=== PATIENT | male | born 1965 | race Caucasian/White ===

== ENCOUNTER 2020-03-16 14:21 | Emergency (ER) | payer SELFPAY ==
[2020-03-16 14:23] VITALS: BP 160/89; PULSE 97; RESP 18; TEMP 36.7; O2SAT 97; BMI 28.9
--- NOTE | 2020-03-16 14:27 | EKG12_ITS ---
Test Reason : PALPITATIONS Blood Pressure : / mmHG Vent. Rate : 097 BPM Atrial Rate : 097 BPM P-R Int : 172 ms QRS Dur : 108 ms QT Int : 358 ms P-R-T Axes : 040 -29 032 degrees QTc Int : 454 ms Normal sinus rhythm Leftward axis Poor R wave progression Confirmed by MINI ALLEN, PREETHI ([id number]), desk editor FLORENCE CHAMBERS ([id number]) on 03/20/2020 10:43:36 AM Referred By: MARIELOS Confirmed By:PREETHI MORSE MD
[2020-03-16 14:30] VITALS: O2SAT 98
[2020-03-16 14:40] LABS: Absolute Lymphocyte Count 2.45 X10^3/uL (0.83-4.51); Absolute Neutrophil Count 8.4 X10^3/uL (2.0-7.7); Basophil# 0.12 X10^3/uL; Eosinophil# 0.17 X10^3/uL; Eosinophils% 1.4 % (0-5); Hematocrit 40.6 % (40-54); Hemoglobin 14.1 g/dL (13.0-16.5); Lymphocyte # 2.45 X10^3/ul (4.0); Lymphocyte % 20.3 % (19-41); Mean Corp Hgb Conc 34.7 g/dL (32-36); Mean Corpuscular Hgb 30.3 pg (27.0-32.0); Mean Corpuscular Volume 87.3 fL (80-94); Mean Platelet Vol. 9.2 fl (6.2-12.0); Monocyte# 0.85 X10^3/uL; NRBC Flagged by Analyzer 0 % (0-5); Neutrophil # 8.43 X10^3/uL (2.7-7.7); Neutrophil % 69.7 % (47-70); Platelet Count 368 K/mm3 (150-450); RBC Distribution Width CV 11.8 % (11.6-14.6); RBC Distribution Width SD 37.4 fl (35.1-43.9); Red Blood Count 4.65 M/mm3 (4.6-6.2); White Blood Count 12.1 K/mm3 (4.4-11.0)
--- NOTE | 2020-03-16 14:40 | RAD_ITS ---
STUDY: X-RAY CHEST REASON FOR EXAM: Male, 54 years old. HIGH HEART RATE AND CHEST PAIN, HX OF ANXIETY TECHNIQUE: Single AP portable view of the chest. COMPARISON: None. FINDINGS: EKG electrodes are seen. The lungs are clear and expanded. There is no demonstrated pleural abnormality. Normal size heart. Normal mediastinum and chris. Normal visualized pulmonary arteries. Normal visualized aortic arch and descending thoracic aorta. There are degenerative changes of the visualized thoracic spine. Normal visualized ribs, clavicles, and shoulders. There is no demonstrated abnormality of the visualized soft tissue structures of the upper abdomen. RAD/Chest 1 View (Portable) IMPRESSION: Normal x-ray examination of the chest. Electronically Signed: Deni Rosa, at 14:58 EDT , Service support ,
--- NOTE | 2020-03-16 14:47 | ED.VIS.GEN ---
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 He had another episode today. He did not lose consciousness today. He felt lightheaded after he stood up from a seated position and had to sit down. His called EMS. He had a similar episode last week that he states he actually lost consciousness and his drove him to the hospital but due to the weight in the waiting room he did not sign in as a patient in the emergency department. No chest pain or shortness of breath. No leg pain or swelling. No fevers. No cough. No room spinning sensation. No tinnitus. No numbness tingling or weakness. No hemoptysis. No recent travel or surgery history of DVT or PE. Prior similar symptoms: No Recent Illness/Hospitalization: No Past Medical History - Allergies and Home Meds Allergies/Adverse Reactions: Allergies No Known Allergies Allergy (Verified 03/16/20 14:32) Prior records reviewed: Yes Past Medical History: - - Hypertension, anxiety and depression Surgical History: no surgical history Lives: With Family Smoking Status: Never smoker Alcohol: None Drugs: None Review of Systems All systems negative except as indicated General: Denies: Chills, Fever, Sweats Eyes: Denies: Visual changes - bilaterally, Blurred Vision - bilaterally, Diplopia ENT: Denies: Rhinorrhea, Sore throat Cardiovascular: Reports: Palpitations, Heart racing. Denies: Chest pain Respiratory: Denies: Dyspnea, Cough, Dyspnea on exertion Gastrointestinal: Denies: Abdominal pain, Nausea, Vomiting, Diarrhea, Melena, Hematochezia Genitourinary: Denies: Dysuria, Hematuria, Frequency Musculoskeletal: Denies: Back pain, Extremity Pain Skin: Denies: Rash, Wounds Neurological: Denies: Headache, Weakness, Parasthesia, Numbness Physical Exam Vital Signs/Narrative: Vital Signs Temp Pulse Resp BP Pulse Ox 03/16/20 14:30 98 03/16/20 14:23 98.1 F 97 18 160/89 H 97 Inital Vital Signs reviewed: Yes General: Well nourished, Well developed, No Acute Distress Head: Normocephalic, Atraumatic Eyes: Perrl, EOMI ENT: Moist mucous membranes, No rhinorrhea Neck: Supple, Nontender Cardiovascular: Regular rate, Regular rhythm, No murmurs Respiratory: No distress, CTA bilaterally, Chest nontender Abdomen: Soft, Nontender, Nondistended, Normal bowel sounds Back: Nontender, Normal Inspection Extremities: Nontender, No edema Skin: Normal color, No rash Neurological: Alert, Oriented x3, Cranial nerves II-XII grossly intact, Normal Strength, Normal Sensation, Normal Gait, - - normal finger to nose Psychological: Normal affect, Normal Mood Diagnostic/Tx/Re-eval - Rhythm Strip Rhythm Strip: Sinus Rhythm Rate: 98 Ectopy: None - EKG Initial EKG Interpretation: Sinus Rhythm, No Acute Injury Pattern Prior: No Prior - Medical Decision Making On arrival patient had normal vital signs. His EKG was normal sinus rhythm. Rate of 97 bpm. Normal intervals. No ectopy. Laboratory work-up was unremarkable. Chest x-ray unremarkable as well. I spoke with Dr. Chaney, patient will be arranged to have a Holter monitor set up next week as an outpatient. I discussed this with patient and his and they are agreeable with plan of care. Return precautions discussed. He will be discharged ED Disposition - Plan for ED Patient: Disposition: Home or Assisted Living Diagnosis: Palpitations Instructions: ED Palpitations Referrals: Valeria Gonzalez DO [Primary Care Provider] - 3-5 Days
[2020-03-16 15:03] LABS: Anion Gap 5 (5-15); BUN 17 mg/dL (7-18); BUN/Creat Ratio 14.3 RATIO (10-20); Calcium,Total 8.6 mg/dL (8.5-10.1); Chloride 99 mmol/L (98-107); Creatinine, Serum 1.19 mg/dL (0.70-1.30); EST Glomerular Filtration Rate 67 mL/min (>60); Est Glom Filt Rate - Afr Amer 82 mL/min (>60); Estimated Creatinine Clearance 72.42 ml/min; Glucose 106 mg/dL (74-106); Potassium 3.3 mmol/L (3.5-5.1); Sodium Level 131 mmol/L (136-145)
[2020-03-16 15:21] VITALS: BP 136/82; PULSE 95; RESP 18; O2SAT 100
[2020-03-16 16:24] VITALS: BP 131/81; PULSE 72; RESP 18; O2SAT 99
== END 2020-03-16 16:24 | disposition home or self-care (01) ==
PROVIDERS: Emergency Medicine; Emergency Provider Physician Assistant Medical; PCP Internal Medicine
DX: R00.2 Palpitations (principal); R42 Dizziness and giddiness; I10 Essential (primary) hypertension; F32.9 Major depressive disorder, single episode, unspecified; F41.9 Anxiety disorder, unspecified; Z79.899 Other long term (current) drug therapy
CPT/HCPCS: 71045; 80048; 84484; 85025; 93005; 99285; A4216

== ENCOUNTER → 2022-12-30 | Outpatient (CLI) | payer OTHER, SELFPAY | END | disposition home or self-care (01) | LOC: PAT 10:19 | PROVIDERS: PCP Internal Medicine; Visit Provider Internal Medicine Gastroenterology | DX: Z01.818 Encounter for other preprocedural examination (principal) ==

== ENCOUNTER → 2024-01-28 | Outpatient (CLI) | payer OTHER, SELFPAY | END | disposition home or self-care (01) | LOC: PSN 13:53 | PROVIDERS: PCP Internal Medicine; Referring Provider Internal Medicine; Visit Provider Internal Medicine | DX: I49.9 Cardiac arrhythmia, unspecified (principal) | CPT/HCPCS: 93225; 93226 ==

== ENCOUNTER 2024-02-24 07:06 | Emergency (ER) | payer OTHER, SELFPAY ==
[2024-02-24 07:07] VITALS: BP 180/97; PULSE 87; RESP 18; TEMP 36.5; O2SAT 96; BMI 28.3
--- NOTE | 2024-02-24 07:25 | CT_ITS ---
STUDY: CT ABDOMEN AND PELVIS WITH CONTRAST REASON FOR EXAM: Male, 58 years old. Left lower quadrant pain x1 week RADIATION DOSAGE (If Supplied By Facility): CTDIvol = ( 15.87 ) mGy, DLP = ( 1259.10 ) mGycm TECHNIQUE: Transaxial images were obtained from the dome of the diaphragm to the symphysis pubis without oral contrast. IV 100mL Isovue-300 was administered. Sagittal and coronal images were reconstructed. Individualized dose optimization techniques were used for this CT. COMPARISON: None. FINDINGS: The visualized lung bases are unremarkable. The visualized portions of the heart are within normal limits. The liver is unremarkable aside from a simple 1 cm cyst in the left lobe. There are 2 separate gallstones near the neck of the gallbladder and some subtle gallbladder wall enhancement but there is no wall thickening, pericholecystic fluid or biliary dilatation noted. Normal spleen. Normal pancreas. Normal bilateral adrenal glands. No obstructive uropathy, or suspicious solid renal lesion, there is a simple 5 mm right renal cyst. Normal visualized stomach. Normal small intestine. There are a few scattered colonic diverticula. There is abnormal thickening of the proximal and mid sigmoid colon with pericolonic inflammatory stranding and caliber change. Findings are consistent with acute diverticulitis. However, an underlying lesion needs to be excluded and further evaluation with colonoscopy is recommended once the acute inflammatory changes have resolved. No perforation or abscess. There are multiple subcentimeter associated lymph nodes present. The appendix is visualized and appears normal. Appendix is seen on coronal recon images 59 through 63. Normal abdominal aorta. Normal inferior vena cava. Normal retroperitoneum. There is diffuse circumferential thickening of the bladder likely due to patient''s mildly enlarged prostate which contains multiple calcifications suggesting chronic prostatitis. Small fat containing inguinal hernias noted. Normal osseous structures. CT/Abdomen/Pelvis W IV Cont ONLY IMPRESSION: Abnormal thickening of the proximal and mid sigmoid colon with pericolonic inflammatory stranding and caliber change. Findings are suggestive of acute diverticulitis without perforation or abscess but an underlying lesion needs to be excluded once the acute inflammation has resolved. Simple hepatic and renal cysts, no specific follow-up needed. Cholelithiasis without CT evidence of acute cholecystitis N.B. : The above Results were Read Back by Demetrio Birmingham MD to Lexa Vidal DO, and understanding confirmed on 02/24/2024 08:30:28 (ET). Electronically Signed: Demetrio Birmingham MD at 8:39 EDT ,
[2024-02-24 07:28] LABS: Absolute Neutrophil Count 11.1 X10^3/uL (2.0-7.7); Basophil# 0.17 X10^3/uL; Basophil% 1.1 % (0-1); Eosinophil# 0.18 X10^3/uL; Eosinophils% 1.1 % (0-5); Hematocrit 45.4 % (40-54); Hemoglobin 15.2 g/dL (13.0-16.5); Lymphocyte % 18.2 % (19-41); Mean Corp Hgb Conc 33.5 g/dL (32-36); Mean Corpuscular Hgb 29.8 pg (27.0-32.0); Mean Platelet Vol. 9.3 fl (6.2-12.0); Monocyte# 1.56 X10^3/uL; Monocyte% 9.8 % (0-10); NRBC Flagged by Analyzer 0 % (0-5); Neutrophil # 11.05 X10^3/uL (2.7-7.7); Neutrophil % 69.2 % (47-70); POSITIVE DIFFERENTIAL YES; Platelet Count 282 K/mm3 (150-450); RBC Distribution Width CV 12.8 % (11.6-14.6); RBC Distribution Width SD 41.8 fl (35.1-43.9)
--- NOTE | 2024-02-24 07:29 | EX.ED.DYSGE1 ---
HPI History of Present Illness Chief Complaint: Abd Pain Informant: patient Narrative Narrative: 58-year-old male presenting to the emergency room with lower abdominal pain. Patient states that last Thursday into he developed diarrhea. He noticed some upper abdominal discomfort. He states he then developed lower abdominal discomfort. His stools have since returned to normal but the pain has remained mostly suprapubic left lower quadrant. He denies any painful urination but does note frequent urination. Is been otherwise eating normally. No fevers. He notes no blood or black stools. The patient denies any history of colitis or diverticulitis. No history of ureterolithiasis. Patient denies any prior abdominal surgeries. There is no radiation of the pain. [facility] Medical History Wears glasses Wears contact lenses Alcohol use Marijuana use Injury of back Non-smoker History of stress test Hyperlipidemia PTSD (post-traumatic stress disorder) Essential (primary) hypertension GERD (gastroesophageal reflux disease) Erosive esophagitis Muscle weakness (generalized) Lump in throat Home Medications ?Medication ?Instructions ?Recorded ?Last Taken ?Type lisinopril 20 mg tablet 20 mg PO BID 03/16/20 02/24/24 History escitalopram oxalate 10 mg tablet 10 mg PO DAILY 03/10/22 02/24/24 History (Lexapro) amoxicillin 875 mg-potassium 875 mg PO Q12H #20 TABLETS 02/24/24 Unknown Rx clavulanate 125 mg tablet ondansetron 4 mg disintegrating 4 mg PO Q6H PRN PRN Nausea #10 tabs 02/24/24 Unknown Rx tablet oxycodone-acetaminophen 5 mg-325 1 tab PO Q6H PRN PRN Pain 3 days 02/24/24 Unknown Rx mg tablet #12 TABLETS Allergy/AdvReac Type Severity Reaction Status Date / Time No Known Allergies Allergy Verified 02/24/24 07:07 Family History Mother Hypertension Father Hyperlipidemia Surgical History History of esophagogastroduodenoscopy (EGD) History of tonsillectomy Social History Smoking Status: Never smoker alcohol intake: current ROS ROS ED Constitutional Constitutional ED: Denies chills, fever(s) or weight loss Eyes Eyes: Denies change in vision or diplopia ENT ENT ED: Denies ear pain, rhinorrhea or sore throat Cardiovascular Cardiovascular: Denies chest pain, orthopnea, palpitations or racing heartbeat Respiratory/Chest Respiratory/Chest: Denies cough, dyspnea or orthopnea Gastrointestinal Gastrointestinal: Reports abdominal pain and diarrhea; Denies nausea or vomiting Genitourinary Genitourinary ED: Denies dysuria, hematuria or urinary frequency Musculoskeletal Musculoskeletal: Denies arthralgias, back pain or myalgias Integumentary Denies abscess or rash Neurologic Neurologic: Denies headache(s) or weakness Psychiatric Psychiatric: Denies anxiety, depression, suicidal ideation or suicidal thoughts Endocrine Endocrinology: Denies polydipsia, polyphagia or polyuria Allergic/Immunologic Allergic/Immunologic ED: Denies mouth swelling, tongue swelling or urticaria EXAM Physical Exam Const Vital Signs: 02/24/24 07:07 Temperature 97.7 F L Temperature Source Temporal Pulse Rate 87 Respiratory Rate 18 Blood Pressure 180/97 H Blood Pressure Mean 124 Pulse Ox 96 Oxygen Delivery Method Room Air Positive well nourished and well developed General Appearance ED: well developed HEENT Reports normocephalic, head/scalp atraumatic and moist mucous membranes Eyes PERRL and EOMs intact bilaterally Neck no lymphadenopathy, supple and no JVD Resp normal respiratory effort and clear to auscultation bilaterally Cardio regular rate, regular rhythm and no murmurs GI Inspection: Negative for abdominal distention Auscultation: normoactive bowel sounds Palpation: soft and tender LLQ and suprapubic Back/Spine no CVA tenderness and normal ROM Extremity normal to inspection General Extremety ED: Negative for edema General Extremity: Negative for edema Neuro oriented x3 and CN's II-XII intact bilaterally Sensorium / Orientation: alert Motor Exam: strength 5/5 throughout Psych mental status grossly normal Mood & Affect: Negative for depressed or tearful Skin no rashes or lesions noted and no wounds MDM MDM MDM Narrative Medical decision making narrative: Differential diagnosis includes but not limited to diverticulitis colitis volvulus bowel obstruction constipation UTI ureterolithiasis White count elevated 16. There is slight elevation of the patient's creatinine. Urinalysis is negative. Liver and lipase normal. CT then pelvis with IV contrast was obtained demonstrates acute sigmoid diverticulitis. There is noted caliber change. I discussed with the patient. He is afebrile. He clinically appears well. He will be treated with Augmentin on outpatient basis as well as pain and nausea medication. I do recommend a follow-up colonoscopy which was discussed with the patient and he notes understanding. He understands return instructions and potential complications of diverticulitis. No further questions from the patient. History & Record Review Discussion w/independent historian: Patient Lab Data Attestation: I reviewed the patient's lab results. Labs: Laboratory Results - last 24 hr 02/24/24 02/24/24 02/24/24 07:18 07:18 07:18 WBC 16.0 H RBC 5.10 Hgb 15.2 Hct 45.4 MCV 89.0 MCH 29.8 MCHC 33.5 RDW Std Deviation 41.8 RDW Coeff of Maddison 12.8 Plt Count 282 MPV 9.3 Immature Gran % (Auto) 0.600 Neut % (Auto) 69.2 Lymph % (Auto) 18.2 L Gage % (Auto) 9.8 Eos % (Auto) 1.1 Baso % (Auto) 1.1 H Absolute Neuts (auto) 11.1 H Absolute Lymphs (auto) 2.90 Nucleated RBC % 0 Differential Comment Diff Path Review May foll Sodium 136 137 Potassium 3.8 3.9 Chloride 103 Carbon Dioxide Anion Gap BUN Creatinine Estim Creat Clear Calc Est GFR (MDRD) Af Amer Est GFR (MDRD) Non-Af BUN/Creatinine Ratio Glucose Calcium Total Bilirubin Direct Bilirubin AST ALT Alkaline Phosphatase Total Protein Albumin Globulin Lipase Urine Color Urine Clarity Urine pH Ur Specific Blodgett Urine Protein Urine Glucose (UA) Urine Ketones Urine Occult Blood Urine Nitrite Urine Bilirubin Urine Urobilinogen Ur Leukocyte Esterase Urine RBC Urine WBC Ur Squamous Epith Cells Urine Bacteria Urine Mucus 02/24/24 02/24/24 02/24/24 07:18 07:18 07:18 WBC RBC Hgb Hct MCV MCH MCHC RDW Std Deviation RDW Coeff of Maddison Plt Count MPV Immature Gran % (Auto) Neut % (Auto) Lymph % (Auto) Gage % (Auto) Eos % (Auto) Baso % (Auto) Absolute Neuts (auto) Absolute Lymphs (auto) Nucleated RBC % Differential Comment Diff Path Review Sodium Potassium Chloride 104 Carbon Dioxide 27.0 27.0 Anion Gap 6 6 BUN 16 Creatinine Estim Creat Clear Calc Est GFR (MDRD) Af Amer Est GFR (MDRD) Non-Af BUN/Creatinine Ratio Glucose Calcium Total Bilirubin Direct Bilirubin AST ALT Alkaline Phosphatase Total Protein Albumin Globulin Lipase Urine Color Urine Clarity Urine pH Ur Specific Blodgett Urine Protein Urine Glucose (UA) Urine Ketones Urine Occult Blood Urine Nitrite Urine Bilirubin Urine Urobilinogen Ur Leukocyte Esterase Urine RBC Urine WBC Ur Squamous Epith Cells Urine Bacteria Urine Mucus 02/24/24 02/24/24 02/24/24 07:18 07:18 07:18 WBC RBC Hgb Hct MCV MCH MCHC RDW Std Deviation RDW Coeff of Maddison Plt Count MPV Immature Gran % (Auto) Neut % (Auto) Lymph % (Auto) Gage % (Auto) Eos % (Auto) Baso % (Auto) Absolute Neuts (auto) Absolute Lymphs (auto) Nucleated RBC % Differential Comment Diff Path Review Sodium Potassium Chloride Carbon Dioxide Anion Gap BUN 15 Creatinine 1.52 H 1.46 H Estim Creat Clear Calc 60.75 63.25 Est GFR (MDRD) Af Amer 61 Est GFR (MDRD) Non-Af BUN/Creatinine Ratio Glucose Calcium Total Bilirubin Direct Bilirubin AST ALT Alkaline Phosphatase Total Protein Albumin Globulin Lipase Urine Color Urine Clarity Urine pH Ur Specific Blodgett Urine Protein Urine Glucose (UA) Urine Ketones Urine Occult Blood Urine Nitrite Urine Bilirubin Urine Urobilinogen Ur Leukocyte Esterase Urine RBC Urine WBC Ur Squamous Epith Cells Urine Bacteria Urine Mucus 02/24/24 02/24/24 02/24/24 07:18 07:18 07:18 WBC RBC Hgb Hct MCV MCH MCHC RDW Std Deviation RDW Coeff of Maddison Plt Count MPV Immature Gran % (Auto) Neut % (Auto) Lymph % (Auto) Gage % (Auto) Eos % (Auto) Baso % (Auto) Absolute Neuts (auto) Absolute Lymphs (auto) Nucleated RBC % Differential Comment Diff Path Review Sodium Potassium Chloride Carbon Dioxide Anion Gap BUN Creatinine Estim Creat Clear Calc Est GFR (MDRD) Af Amer 64 Est GFR (MDRD) Non-Af 50 L 53 L BUN/Creatinine Ratio 10.5 10.3 Glucose 110 H Calcium Total Bilirubin Direct Bilirubin AST ALT Alkaline Phosphatase Total Protein Albumin Globulin Lipase Urine Color Urine Clarity Urine pH Ur Specific Blodgett Urine Protein Urine Glucose (UA) Urine Ketones Urine Occult Blood Urine Nitrite Urine Bilirubin Urine Urobilinogen Ur Leukocyte Esterase Urine RBC Urine WBC Ur Squamous Epith Cells Urine Bacteria Urine Mucus 02/24/24 02/24/24 02/24/24 07:18 07:18 07:25 WBC RBC Hgb Hct MCV MCH MCHC RDW Std Deviation RDW Coeff of Maddison Plt Count MPV Immature Gran % (Auto) Neut % (Auto) Lymph % (Auto) Gage % (Auto) Eos % (Auto) Baso % (Auto) Absolute Neuts (auto) Absolute Lymphs (auto) Nucleated RBC % Differential Comment Diff Path Review Sodium Potassium Chloride Carbon Dioxide Anion Gap BUN Creatinine Estim Creat Clear Calc Est GFR (MDRD) Af Amer Est GFR (MDRD) Non-Af BUN/Creatinine Ratio Glucose 110 H Calcium 9.2 9.3 Total Bilirubin 0.90 Direct Bilirubin 0.19 AST 23 ALT 42 Alkaline Phosphatase 84 Total Protein 8.1 Albumin 3.8 Globulin 4.3 H Lipase 35 Urine Color Yellow Urine Clarity Clear Urine pH 7.0 Ur Specific Blodgett 1.010 Urine Protein 15 H Urine Glucose (UA) Normal Urine Ketones Negative Urine Occult Blood 25 H Urine Nitrite Negative Urine Bilirubin Negative Urine Urobilinogen Normal Ur Leukocyte Esterase 100 H Urine RBC 0-5 SEEN Urine WBC 0-5 SEEN Ur Squamous Epith Cells 0 SEEN Urine Bacteria 0 SEEN Urine Mucus 0 SEEN Radiography Diagnostic Testing: Clinical Impression(s) from Imaging Studies Abdomen/Pelvis CT 02/24/24 07:25 IMPRESSION: Abnormal thickening of the proximal and mid sigmoid colon with pericolonic inflammatory stranding and caliber change. Findings are suggestive of acute diverticulitis without perforation or abscess but an underlying lesion needs to be excluded once the acute inflammation has resolved. Simple hepatic and renal cysts, no specific follow-up needed. Cholelithiasis without CT evidence of acute cholecystitis N.B. : The above Results were Read Back by Demetrio Birmingham MD to Lexa Vidal DO, and understanding confirmed on 02/24/2024 08:30:28 (ET). Electronically Signed: Demetrio Birmingham MD at 8:39 EDT Reading Location ID and State: [address] [place] [address] , Service support , Discharge Plan Triage Chief Complaint: Abd Pain ED Provider: Lexa Vidal Dx/Rx/DC Orders Clinical Impression: Abdominal pain, acute, Acute diverticulitis Instructions: ED Diverticulitis Prescriptions: New oxycodone-acetaminophen 5-325 mg tablet 1 tab PO Q6H PRN PRN (Reason: Pain) 3 Days Qty: 12 0RF ondansetron 4 mg tablet,disintegrating 4 mg PO Q6H PRN PRN (Reason: Nausea) Qty: 10 0RF amoxicillin-pot clavulanate 875-125 mg tablet 875 mg PO Q12H Qty: 20 0RF No Action escitalopram oxalate [Lexapro] 10 mg tablet 10 mg PO DAILY lisinopril 20 MG tablet 20 mg PO BID Primary Care Provider: Valeria Gonzalez Referrals: Valeria Gonzalez DO [Primary Care Provider] - 1 Week Activity Restrictions/Additional Instructions: As discussed you need to have a follow-up colonoscopy when you have recovered from this illness. This is to ensure there is no underlying malignancy or other potential complications. If you develop fever worsening abdominal pain not improving or initial improvement followed by return of symptoms you need to return to emergency department for repeat examination. Please take the entire course of the antibiotics. Print Language: Puerto Rican Disposition Disposition: Home, Self Care
[2024-02-24] MEDS: 0.9% Normal Saline (1000mL) 1,000 ML 999 ML IV (07:33)
[2024-02-24 07:35] LABS: Differential Indicated SCAN CRITERIA MET
[2024-02-24 07:41] LABS: Bacteria 0 SEEN /hpf (None Seen); Mucous, Urine 0 SEEN /hpf (<or=2+); Squamous Epithelial Cells - UA 0 SEEN /hpf (0-5)
[2024-02-24 07:42] LABS: Color, Urine Yellow (Yellow); Glucose, Dipstick Normal (Normal); Ketone-Dipstick Negative (Negative); Leukocyte Esterase-Dipstick 100 /ul (Negative); Nitrite-Dipstick Negative (Negative); Occult Blood-Urine 25 /ul (Negative); Protein-Dipstick 15 mg/dl (Negative); Urine Bilirubin Dipstick Negative (Negative); Urine Clarity Clear (Clear); Urine Urobilinogen Normal (Normal)
[2024-02-24 07:45] LABS: Anion Gap 6 (5-15); BUN 16 mg/dL (7-18); BUN/Creat Ratio 10.5 RATIO (10-20); Calcium,Total 9.2 mg/dL (8.5-10.1); Chloride 103 mmol/L (98-107); Creatinine, Serum 1.52 mg/dL (0.70-1.30); EST Glomerular Filtration Rate 50 mL/min (>60); Est Glom Filt Rate - Afr Amer 61 mL/min (>60); Estimated Creatinine Clearance 60.75 ml/min; Glucose 110 mg/dL (74-106); Potassium 3.8 mmol/L (3.5-5.1); Sodium Level 136 mmol/L (136-145)
[2024-02-24 07:47] LABS: Red Blood Cells-Urine 0-5 SEEN /hpf (0-5); White Blood Cells 0-5 SEEN /hpf (0-5)
[2024-02-24 07:58] LABS: AST(SGOT) 23 U/L (15-37); Alanine Aminotransfer ALT/SGPT 42 U/L (16-61); Albumin, Serum 3.8 g/dL (3.2-5.0); Alkaline Phosphatase 84 U/L (45-117); Anion Gap 6 (5-15); BUN 15 mg/dL (7-18); BUN/Creat Ratio 10.3 RATIO (10-20); Bilirubin, Direct 0.19 mg/dL (0.00-0.30); Calcium,Total 9.3 mg/dL (8.5-10.1); Chloride 104 mmol/L (98-107); Creatinine, Serum 1.46 mg/dL (0.70-1.30); EST Glomerular Filtration Rate 53 mL/min (>60); Est Glom Filt Rate - Afr Amer 64 mL/min (>60); Estimated Creatinine Clearance 63.25 ml/min; Globulin 4.3 g/dL (2.2-4.2); Glucose 110 mg/dL (74-106); Lipase 35 U/L (13-75); Potassium 3.9 mmol/L (3.5-5.1); Protein, Total 8.1 g/dL (6.4-8.2); Sodium Level 137 mmol/L (136-145)
[2024-02-24 08:47] VITALS: BP 177/91; PULSE 112; RESP 17; TEMP 36.5; O2SAT 98
[2024-02-25 13:14] LABS: Pathologist Review Reviewed
== END 2024-02-24 08:52 | disposition home or self-care (01) ==
PROVIDERS: Emergency Provider Emergency Medicine; PCP Internal Medicine; Visit Provider Emergency Medicine
DX: K57.92 Diverticulitis of intestine, part unspecified, without perforation or abscess without bleeding (principal); R35.0 Frequency of micturition; K21.00 Gastro-esophageal reflux disease with esophagitis, without bleeding; I10 Essential (primary) hypertension; E78.5 Hyperlipidemia, unspecified; Z79.899 Other long term (current) drug therapy
CPT/HCPCS: 74177; 80048; 80076; 81001; 83690; 85025; 96360; 99283; J7030; J7040; Q9967; A4216

== ENCOUNTER → 2024-04-20 | Outpatient (CLI) | payer OTHER, SELFPAY ==
--- NOTE | 2024-04-20 08:00 | RDU_ITS ---
Reason For Study: Asymptomatic hypertensive urgency Right Renal Artery Left Renal Artery Right renal artery ostium 119.9/32 Left renal artery ostium 115.6/30.1 RSV/EDV. PSV/EDV. Right renal artery proximal Left renal artery proximal PSV/EDV 132.1/42.7 PSV/EDV. 138.9/43 . Right renal artery mid 146.2/50.5 Left renal artery mid 120.7/35.2 PSV/EDV. PSV/EDV . Right renal artery distal Left renal artery distal 95.9 161.5/42.1 PSV/EDV. PSV/EDV. Right RAR 1.70. Left RAR 1.47. Right Renal Parenchyma Left Renal Parenchyma Upper Pole Medula 45.7/17.1 Left upper pole medulla 38.6/7.9 PSV/EDV. PSV/EDV . Right upper pole medulla EDR 0.4 . Left upper pole medulla EDR 0.2 . Right upper pole medulla R.I. Left upper pole medulla R.I. 0.80 . 0.62 . UP Cortex 27.1/8.7 PSV/EDV. Upper Brian Cortx 22.5/7.7 PSV/EDV. Left upper pole cortex EDR 0.3 . Right upper pole cortex EDR 0.3 . Left upper pole cortex R.I. 0.68 . Right upper pole cortex R.I. 0.66 . Left lower Pole medulla 34.5/11.8 Right lower Pole medulla 36/12.7 PSV/EDV . PSV/EDV . Left lower pole medulla EDR 0.3 . Right lower pole medulla EDR 0.4 . Left lower pole medulla R.I. 0.66 . Right lower pole medulla R.I. Lower Pole Cortx 20.4/6.9 PSV/EDV. 0.65 . Left lower pole cortex EDR 0.3 . Lower Pole Cortex 18.8/5.9 PSV/EDV. Left lower pole cortex R.I. 0.66 . Right lower pole cortex EDR 0.3 . Left Renal Hilar Right lower pole cortex R.I. 0.69 . LT Hilar avg 73.4/22.9 PSV/EDV . Right Renal Hilar Left hilar acceleration time 40 Right Hilar avg 73.1/13.8 PSV/EDV. m/sec. Right hilar acceleration time 70 Left Renal Dimensions m/sec. Left kidney size 11.87 cm . Right Renal Dimensions Left cortical dimension 1.39 cm . Right kidney size 10.76 cm . Right cortical dimension 1.49 cm . Aorta Proximal abdominal aorta 1.73 x 1.75 cm . Proximal abdominal aorta peak systolic velocity is 94.8 cm/sec . Distal abdominal aorta 1.35 x 1.36 cm . Distal abdominal aorta peak systolic velocity is 115..5 cm/sec . VL/Renal Artery Duplex Ultrasound Interpretation Summary Right renal artery patent with normal velocities and no evidence of stenosis. Left renal artery patent with normal velocities and no evidence of stenosis. Right renal vein patent. Left renal vein patent. Right kidney normal in size. Left kidney normal in size. Ordering Physician: Valeria Gonzalez Referring Physician: Valeria Gonzalez Performed By: Akila Rodriguez RVT
--- NOTE | 2024-04-20 08:00 | CDU_ITS ---
Reason For Study: Hypertensive urgency Rt. Velocities/BP Lt. Velocities/BP Prox CCA 92.9/18.2 cm/sec. Prox CCA 107.2/21.2 cm/sec. Mid CCA 91.9/18.2 cm/sec. Mid CCA 87.6/18.8 cm/sec. Dist CCA 87.2/22 cm/sec. Dist CCA 94.9/20 cm/sec. Prox ICA 56/20.1 cm/sec. Prox ICA 60.8/16.8 cm/sec. Mid ICA 87.6/21.2 cm/sec. Mid ICA 69.6/21.2 cm/sec. Dist ICA 74/24.9 cm/sec. Dist ICA 71.8/27.8 cm/sec. Rt. ICA/CCA = 0.95. Lt. ICA/CCA = 0.82. Prox ECA 85.3/11.6 cm/sec. Prox ECA 91.2/11.43 cm/sec. Rt. Vert. 31.5/7.3 cm/sec. Lt. Vert. 38.6/11.6 cm/sec. Right Extracranial There is intimal thickening but no significant atherosclerotic plaque noted in the right common carotid artery. There is intimal thickening but no significant atherosclerotic plaque noted in the right internal carotid artery. There is intimal thickening but no significant atherosclerotic plaque noted in the right external carotid artery. Antegrade flow is noted in the right vertebral artery. Left Extracranial There is intimal thickening but no significant atherosclerotic plaque noted in the left common carotid artery. There is intimal thickening but no significant atherosclerotic plaque noted in the left internal carotid artery. There is intimal thickening but no significant atherosclerotic plaque noted in the left external carotid artery. Antegrade flow is noted in the left vertebral artery. Procedure Carotid Duplex 40605. This is a Carotid Duplex examination using B-mode, color flow and specral Doppler. Exam performed in department. VL/Carotid Duplex Ultrasound Interpretation Summary Normal right extracranial internal carotid. Normal left extracranial internal carotid. Patent and antegrade vertebrals bilaterally. Ordering Physician: Valeria Gonzalez Referring Physician: Valeria Gonzalez Performed By: Akila Rodriguez RVT
== END | disposition home or self-care (01) ==
LOC: CVS 08:00
PROVIDERS: PCP Internal Medicine; Referring Provider Internal Medicine; Visit Provider Internal Medicine
DX: I16.0 Hypertensive urgency (principal)
CPT/HCPCS: 93880; 93975

== ENCOUNTER → 2024-05-09 | Outpatient (CLI) | payer OTHER, SELFPAY ==
--- NOTE | 2024-05-09 18:50 | CT_ITS ---
STUDY: CT ABDOMEN WITHOUT CONTRAST REASON FOR EXAM: Male, 58 years old. Resistant Hypertension RADIATION DOSAGE (If Supplied By Facility): CTDIvol = ( 11.54 ) mGy, DLP = ( 389.25 ) mGycm TECHNIQUE: Transaxial images were obtained without intravenous contrast, and oral contrast. Sagittal and coronal images were reconstructed. Individualized dose optimization techniques were used for this CT. COMPARISON: February 24, 2024 FINDINGS: The visualized lung bases are unremarkable. The visualized portions of the heart are within normal limits. Normal liver. Calcified gallstones without evidence for acute cholecystitis. Normal spleen. Normal pancreas. Normal bilateral adrenal glands. Small bilateral renal cyst which will not require a additional imaging. No evidence for renal obstruction Normal visualized stomach. Normal small intestine. Mild diverticular changes of the colon without evidence for acute diverticulitis. No evidence for acute appendicitis. Minor atherosclerotic change of the aorta without evidence for aneurysm. Normal inferior vena cava. Normal retroperitoneum. Normal abdominal wall. Lumbar spine demonstrates diffuse arthritic changes CT/Abdomen without IV Contrast IMPRESSION: Cholelithiasis without evidence for acute cholecystitis Small bilateral renal cysts. No evidence for renal obstruction Electronically Signed: Brandyn Woodard MD at 17:28 EDT ,
== END | disposition home or self-care (01) ==
LOC: CT 18:49
PROVIDERS: PCP Internal Medicine; Referring Provider Internal Medicine; Visit Provider Internal Medicine
DX: I1A.0 Resistant hypertension (principal)
CPT/HCPCS: 74150

== ENCOUNTER 2024-06-09 07:09 | Day surgery (SDC) | payer OTHER, SELFPAY ==
[2024-06-09] VITALS (7 sets, daily range): BP systolic 106–148; BP diastolic 70–79; PULSE 57–74; RESP 14–16; TEMP 36.1–36.8; O2SAT 93–98; BMI 29.4
--- NOTE | 2024-06-09 07:27 | PRE.ANES_ITS ---
ASA Classification* ASA Classification ASA Classification: 2 Assessment & Plan Anesthesia* Anesthesia Assessment Anesthesia Assessment: Discussed sedation and/or anesthesia options, risks, benefits, and alternatives with patient/parents/legal guardian/POA. Questions invited. The patient/parents/legal guardian/POA seems to understand and agrees to proceed with anesthesia plan. Reviewed the physical assessment, medical history, allergy history and patient home medications list prior to surgery/procedure/anesthetic and documented any changes. Performed airway and anesthesia risk assessments. Anesthesia Type Anesthesia Type: MAC Anesthesia Focused Assessment* Airway Assessment Mouth opens: >3 cm Mallampati Score: II Focused Labs Anesthesia Preop lab: CBC WBC 16.0 K/mm3 (4.4-11.0) H 02/24/24 07:18 RBC 5.10 M/mm3 (4.6-6.2) 02/24/24 07:18 Hgb 15.2 g/dL (13.0-16.5) 02/24/24 07:18 Hct 45.4 % (40-54) 02/24/24 07:18 Plt Count 282 K/mm3 (150-450) 02/24/24 07:18 CHEMISTRY Potassium 3.9 mmol/L (3.5-5.1) 02/24/24 07:18 Sodium 137 mmol/L (136-145) 02/24/24 07:18 BUN 15 mg/dL (7-18) 02/24/24 07:18 Creatinine 1.46 mg/dL (0.70-1.30) H 02/24/24 07:18 Glucose 110 mg/dL (74-106) H 02/24/24 07:18 COAG Pre-Assessment Diagnosis/Proposed Procedure Planned Operative Procedure(s): COLONOSCOPY/EGD Anesthesia History 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 When Was Last Pacemaker Check QUESTION #4 FULL TEXT: You/Your Family Experience fever (hyperthermia) with Anesthesia Last Oral Intake Last Oral intake: Last Oral Intake NPO since Meds taken in AM with sips of water? 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 Female Yes 06/08/24 09:04 HX of Motion Sickness No 06/08/24 09:04 HX of N/V After Surgery No 06/08/24 09:04 Non-Smoker Yes 06/08/24 09:04 Duration of Surgery greater No 06/08/24 09:04 than 60 minutes Number of Risk Factors 2 06/08/24 09:04 PONV Score Moderate Risk 06/08/24 09:04 Height & Weight Height & Weight: Anesthesia: Height & Weight Height 5 ft 11 in 02/24/24 07:07 Respiratory Assessment Respiratory Assessment - nuclear plant operator: Respiratory Tract Infection Hx - nuclear plant operator Hx Respiratory Tract Infection No 06/08/24 09:04 STOP Sleep Apnea STOP Sleep Apnea - nuclear plant operator: STOP Sleep Apnea - nuclear plant operator Hx Hypertension Yes: CONTROLLED WITH MED 06/08/24 09:04 Hx Sleep Apnea No 06/08/24 09:04 CPAP BIPAP Do you snore loudly (louder No 06/08/24 09:04 than talking or can be heard Do you often feel tired/ No 06/08/24 09:04 fatigued/ sleepy during daytime? Has anyone observed you stop No 06/08/24 09:04 breathing during sleep? STOP Results Negative 06/08/24 09:04 QUESTION #5 FULL TEXT : Do you snore loudly (louder than talking or can be heard through closed doors)? 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 Specify any problems Hx of Preganancy in last 3 N/A 06/08/24 09:04 Months Nurse Filling Out Transfusion VCHRISTIN 06/08/24 09:04 & Questions: Date: 06/08/24 06/08/24 09:04 Time: 09:04 06/08/24 09:04 Patient unable to answer at this time (ie. confused, unrespo /Reproduction History /Reproductive History - nuclear plant operator: /Reproductive Hx- nuclear plant operator Hx Now No 06/08/24 09:04 Gestational Age (in weeks): EDC: Hx Hx Para Hx Section SAB No 06/08/24 09:04 [facility] Medical History Depression Anxiety Back pain History of diverticulitis Wears glasses Wears contact lenses Alcohol use Marijuana use Injury of back Non-smoker History of stress test Hyperlipidemia PTSD (post-traumatic stress disorder) Essential (primary) hypertension GERD (gastroesophageal reflux disease) Erosive esophagitis Muscle weakness (generalized) Lump in throat Home Medications ?Medication ?Instructions ?Recorded ?Last Taken ?Type lisinopril 20 mg tablet 20 mg PO BID 03/16/20 06/08/24 History escitalopram oxalate 10 mg tablet 10 mg PO DAILY 03/10/22 06/08/24 History (Lexapro) amlodipine 5 mg tablet 5 mg PO DAILY 06/08/24 06/08/24 History Allergy/AdvReac Type Severity Reaction Status Date / Time No Known Allergies Allergy Verified 06/09/24 07:22 Family History Mother Hypertension Father Hyperlipidemia Surgical History Hx of bilateral cataract extraction History of esophagogastroduodenoscopy (EGD) History of tonsillectomy Social History Smoking Status: Never smoker alcohol intake: current Review of Systems (Anesthesia) ROS Narrative System reviewed and no additional complaints, except as documented.
--- NOTE | 2024-06-09 07:37 | PCM.HP.BLA ---
History and Physical Date of Admission: 06/09/24 Chief Complaint: wants to update endoscopies Details: MARY CAMERON, is a 56 M who presents for f/u. Hx of erosive esophagitis when he was last scoped in 2011 when he lived in [place]. Colonoscopy was normal, it was recommended he get neck screening colonoscopy in 10 years. At the time of his diagnosis of erosive esophagitis he was having significant heartburn and belching. He used to take rx esomeprazole, then when he didn't have insurance he tried OTC esomeprazole but it caused stomach upset. Since that time he has drastically improved his diet, becomes more physically active, and lost weight. So he does not have significant heartburn at this time. But he does continue to have belching which does not seem to be due to any particular food or other symptoms. Denies abdominal pain. No nausea, vomiting, dysphagia. No bowel concerns, no diarrhea or constipation. No melena or hematochezia. OV 10.1.24; pt has been doing well. He no longer has any heartburn or belching. He is not currently taking a daily PPI or any medications for reflux. His last colonoscopy was 12 years ago so he would like to be scheduled for a colonoscopy today. He also wished to have an EGD since he has a hx of esophagitis. He denies abdominal pain, heartburn, n/v, constipation, diarrhea or melena. ROS Const Constitutional: No fatigue, fever(s) or weight change ENT ENT: No difficulty swallowing Gastro GI: No abdominal pain, belching, bloating, change in bowel habits, change in stool character, coffee ground emesis, constipation, cramping, diarrhea, heartburn, difficulty swallowing, feeling full early, excessive flatus, incontinent of stools, Vomiting blood/hematemesis, Blood in stool, loose stools, Black,tarry stools, nausea/dyspepsia, pain with swallowing, vomiting or other Musc Musculoskeletal: No joint pain Skin Skin: No yellowing of the eye or itchy eyes Psych Psychiatric: Positive for anxiety and No depression Endo Endocrine: No fatigue or weight change Aller/Imm Allergy/Immunologic: No itchy eyes Emir/Lymp Hematologic/Lymphatic: No easy bleeding or easy bruising Exam Const General: cooperative and comfortable Nutritional Appearance: average body habitus and well nourished HENMT Head: normal to inspection Ears: hearing grossly normal bilaterally Nose: external nose normal Face and sinus: normal facial exam Eyes General: appearance normal, both eyes and all related structures Neck Neck: normal visual inspection Chest Chest palpation & inspection: normal inspection of the chest Resp Effort & Inspection: normal respiratory effort GI Inspection: normal to inspection Palpation: no hepatosplenomegaly Skin General: no rashes or lesions noted Neuro General: patient alert Extrem General: normal to inspection Psych Affect: normal affect Assessment and Plan Assessment and Plan (1) Screen for colon cancer: Status: Acute Plan: Pt is a 58 yo male with PMHx of GERD. He is here today for f/u. His reflux symptoms have been under control and he no longer takes a daily PPI. He would like to be scheduled for a screening colonoscopy today as his last one was 12 years ago. He has a hx of erosive esophagitis and wishes to also have an EGD. I let him know we typically do not do screening EGDs and its not indicated as he is not having symptoms. He would still like one so he will be scheduled for both. -EGD and colonoscopy -F/u as needed (2) GERD (gastroesophageal reflux disease): Status: Acute I have examined the patient and the H&P has been reviewed. There are no clinical changes since date of exam.
--- NOTE | 2024-06-09 08:15 | COLBX_PTH ---
PATIENT: MARY CAMERON LOC: EN U#:[id number] AGE/SX: 58/M ROOM: RE06/09/[address]: Dr. Dakotah Hart DO : 1965 BED: DIS: 06/09/2024 SPEC #: [id number] RECD: 06/09/24 11:06 STATUS: DRE NARCISA #: [id number] GUALBERTO: 06/09/24 08:[address]: Dakotah Hart DEPT: SURGICAL PATHOLOGY RECD BY: Arleen Lopez ENTERED: 06/09/24 12:06 SP TYPE: COLON BX OTHR DR: Dr. Valeria Gonzalez DO Tissues: A - Esophagus, NOS B - Cecum, NOS C - Rectum, NOS Procedures: Special Stain Group I Surgery Specimen Level IV Alcian Blue/PAS (control) HEADER OPERATION: Colonoscopy, polypectomy, EGD with biopsy PRE-OP DIAGNOSIS: Screen for colon cancer, GERD TISSUE SUBMITTED: A- Distal esophagus biopsy, B- Cecum polyp, C- Rectal polyp MICROSCOPIC DIAGNOSIS A. Distal esophagus, biopsy: Fragments of gastroesophageal mucosa with mild chronic inflammation. Intestinal metaplasia (goblet cell metaplasia) not identified. See comment. B. Cecum polyp, polypectomy: Fragments of tubular adenoma. C. Rectal polyp, polypectomy: Inflammatory polyp. 06/10/2024 COMMENT A. Alcian blue/PAS stain with matched control is used in the evaluation of the specimen. MICROSCOPIC DESCRIPTION Slides are reviewed. GROSS DESCRIPTION A. Received in fixative is one container labeled with the patient's name and designated Distal esophagus biopsy. The specimen consists of multiple irregular fragments of light baldwin soft tissue that in aggregate measure 1.5 x 0.5 x 0.1 cm. The specimen is totally submitted in one cassette. B. Received in fixative is one container labeled with the patient's name and designated Cecum polyp. The specimen consists of multiple irregular fragments of light baldwin soft tissue that in aggregate measure 2.0 x 0.3 x 0.1 cm. The specimen is totally submitted in one cassette. C. Received in fixative is one container labeled with the patient's name and designated Rectal polyp. The specimen consists of a baldwin-pink polyp measuring 0.5 x 0.5 x 0.3 cm. The entire specimen is submitted in one cassette. SJ 06/09/2024 [id number]
--- NOTE | 2024-06-09 08:41 | PCM.POST.ANE ---
Anesthesia: Postop Eval I Current Vital Signs Temperature: 98.3 F Pulse Rate: 74 Blood Pressure: 106/70 Respiratory Rate: 14 Pulse Ox: 98 Oxygen Delivery Method: Room Air Assessment Airway patent: Yes Spontaneous unlabored respirations: Yes Mental status: Awake and Calm nausea: No Vomiting: No Anesthesia Complication: No Fluid Hydration Crystalloid volume administer (ml): 60 Total IV fluid infused: 60 Progress Note Anesthesia document: Postop Eval 1 completed: Yes
--- NOTE | 2024-06-09 08:42 | OP.EGD_ITS ---
Patient Name: Joey Perry Procedure Date: 06/09/2024 8:11 AM Date of : 1965 Age: 58 Procedure: Upper GI endoscopy Indications: Suspected Naidu's esophagus Providers: Dakotah Hart DO Referring MD: Valeria Gonzalez Medicines: Monitored Anesthesia Care Patient Profile: This is a 58 year old male. Refer to note in patient chart for documentation of history and physical. Patient has symptoms of chronic heartburn. Complications: No immediate complications. Procedure: Pre-Anesthesia Assessment: - Prior to the procedure, a History and Physical was performed, and patient medications and allergies were reviewed. The patient is competent. The risks and benefits of the procedure and the sedation options and risks were discussed with the patient. All questions were answered and informed consent was obtained. Patient identification and proposed procedure were verified by the physician in the pre-procedure area. Mental Status Examination: alert and oriented. Airway Examination: normal oropharyngeal airway and neck mobility. Respiratory Examination: clear to auscultation. CV Examination: normal. Prophylactic Antibiotics: The patient does not require prophylactic antibiotics. Prior Anticoagulants: The patient has taken no anticoagulant or antiplatelet agents except for NSAID medication. ASA Grade Assessment: II - A patient with mild systemic disease. After reviewing the risks and benefits, the patient was deemed in satisfactory condition to undergo the procedure. The anesthesia plan was to use monitored anesthesia care (MAC). Immediately prior to administration of medications, the patient was re-assessed for adequacy to receive sedatives. The heart rate, respiratory rate, oxygen saturations, blood pressure, adequacy of pulmonary ventilation, and response to care were monitored throughout the procedure. The physical status of the patient was re-assessed after the procedure. After obtaining informed consent, the endoscope was passed under direct vision. Throughout the procedure, the patient's blood pressure, pulse, and oxygen saturations were monitored continuously. The Colonoscope was introduced through the mouth, and advanced to the second part of duodenum. The upper GI endoscopy was accomplished without difficulty. The patient tolerated the procedure well. Scope In: 8:16:17 AM Scope Out: 8:20:07 AM Total Procedure Duration Time 0 hours 3 minutes 50 seconds Findings: There were esophageal mucosal changes suspicious for short-segment Naidu's esophagus present in the lower third of the esophagus. The maximum longitudinal extent of these mucosal changes was 2 cm in length. Mucosa was biopsied with a cold forceps for histology at intervals of 1 cm in the lower third of the esophagus. One specimen bottle was sent to pathology. Verification of patient identification for the specimen was done. Estimated blood loss was minimal. A small hiatal hernia was present. No other significant abnormalities were identified in a careful examination of the stomach. No gross lesions were noted in the first portion of the duodenum. Impression: - Esophageal mucosal changes suspicious for short-segment Naidu's esophagus. Biopsied. - Small hiatal hernia. - No gross lesions in the first portion of the duodenum. Recommendation: - Discharge patient to home. - Resume previous diet. - Continue present medications. - Await pathology results. - Repeat upper endoscopy in 1 year for surveillance based on pathology results. Procedure Code(s): --- Professional --- 51334, Esophagogastroduodenoscopy, flexible, transoral; with biopsy, single or multiple CPT copyright 2021 [employer]. All rights reserved. The codes documented in this report are preliminary and upon information coder review may be revised to meet current compliance requirements. Dakotah Hart DO 06/09/2024 8:41:43 AM This report has been signed electronically. Number of Addenda: 0 Note Initiated On: 06/09/2024 8:11 AM
--- NOTE | 2024-06-09 08:43 | OP.CCLET_ITS ---
06/09/2024 Valeria Gonzalez [address] [place] [address] Re : Upper GI endoscopy procedure for Joey Perry Dear Dr. Gonzalez This procedure was performed on May. My impressions and recommendations are as follows: Impressions : - Esophageal mucosal changes suspicious for short-segment Naidu's esophagus. Biopsied. - Small hiatal hernia. - No gross lesions in the first portion of the duodenum. Recommendations : - Discharge patient to home. - Resume previous diet. - Continue present medications. - Await pathology results. - Repeat upper endoscopy in 1 year for surveillance based on pathology results. My findings are described in the full procedure note, which is enclosed. If I can be of further assistance, please feel free to contact me at . Sincerely, Dakotah Hart, 06/09/2024 8:41:43 AM This report has been signed electronically.
--- NOTE | 2024-06-09 08:44 | OP.COLON_ITS ---
Patient Name: Joey Perry Procedure Date: 06/09/2024 8:20 AM Date of : 1965 Age: 58 Procedure: Colonoscopy Indications: Screening for colorectal malignant neoplasm Providers: Dakotah Hart DO Referring MD: Valeria Gonzalez Medicines: Monitored Anesthesia Care Patient Profile: This is a 58 year old male. Refer to note in patient chart for documentation of history and physical. Patient has symptoms of chronic heartburn. Last Colonoscopy: several years ago. Complications: No immediate complications. Procedure: Pre-Anesthesia Assessment: - Prior to the procedure, a History and Physical was performed, and patient medications and allergies were reviewed. The patient is competent. The risks and benefits of the procedure and the sedation options and risks were discussed with the patient. All questions were answered and informed consent was obtained. Patient identification and proposed procedure were verified by the physician in the pre-procedure area. Mental Status Examination: alert and oriented. Airway Examination: normal oropharyngeal airway and neck mobility. Respiratory Examination: clear to auscultation. CV Examination: normal. Prophylactic Antibiotics: The patient does not require prophylactic antibiotics. Prior Anticoagulants: The patient has taken no anticoagulant or antiplatelet agents except for NSAID medication. ASA Grade Assessment: II - A patient with mild systemic disease. After reviewing the risks and benefits, the patient was deemed in satisfactory condition to undergo the procedure. The anesthesia plan was to use monitored anesthesia care (MAC). Immediately prior to administration of medications, the patient was re-assessed for adequacy to receive sedatives. The heart rate, respiratory rate, oxygen saturations, blood pressure, adequacy of pulmonary ventilation, and response to care were monitored throughout the procedure. The physical status of the patient was re-assessed after the procedure. After I obtained informed consent, the scope was passed under direct vision. Throughout the procedure, the patient's blood pressure, pulse, and oxygen saturations were monitored continuously. The Colonoscope was introduced through the anus and advanced to the cecum, identified by appendiceal orifice and ileocecal valve. The colonoscopy was performed without difficulty. The patient tolerated the procedure well. The quality of the bowel preparation was adequate. The ileocecal valve, appendiceal orifice, and rectum were photographed. Scope In: 8:22:16 AM Scope Withdrawal Time 0 hours 10 minutes 43 seconds Scope Out: 8:34:40 AM Total Procedure Duration Time 0 hours 12 minutes 24 seconds Findings: Skin tags were found on perianal exam. Two sessile polyps were found in the rectum and cecum. The polyps were 1 to 2 mm in size. These polyps were removed with a hot snare. Resection and retrieval were complete. Verification of patient identification for the specimen was done. Estimated blood loss was minimal. A few small-mouthed diverticula were found in the recto-sigmoid colon and sigmoid colon. Impression: - Perianal skin tags found on perianal exam. - Two 1 to 2 mm polyps in the rectum and in the cecum, removed with a hot snare. Resected and retrieved. - Diverticulosis in the recto-sigmoid colon and in the sigmoid colon. Recommendation: - Discharge patient to home [Means]. - Resume previous diet. - Continue present medications. - Await pathology results. - Repeat colonoscopy in 5 years for surveillance. Procedure Code(s): --- Professional --- 23386, Colonoscopy, flexible; with removal of tumor(s), polyp(s), or other lesion(s) by snare technique CPT copyright 2021 [employer]. All rights reserved. The codes documented in this report are preliminary and upon jewish thought professor review may be revised to meet current compliance requirements. Dakotah Hart DO 06/09/2024 8:44:04 AM This report has been signed electronically. Number of Addenda: 0 Note Initiated On: 06/09/2024 8:20 AM
--- NOTE | 2024-06-09 08:45 | OP.CCLET_ITS ---
06/09/2024 Valeria Gonzalez [address] [place] [address] Re : Colonoscopy procedure for Joey Perry Dear Dr. Gonzalez This procedure was performed on May. My impressions and recommendations are as follows: Impressions : - Perianal skin tags found on perianal exam. - Two 1 to 2 mm polyps in the rectum and in the cecum, removed with a hot snare. Resected and retrieved. - Diverticulosis in the recto-sigmoid colon and in the sigmoid colon. Recommendations : - Discharge patient to home [Means]. - Resume previous diet. - Continue present medications. - Await pathology results. - Repeat colonoscopy in 5 years for surveillance. My findings are described in the full procedure note, which is enclosed. If I can be of further assistance, please feel free to contact me at . Sincerely, Dakotah Hart, 06/09/2024 8:44:04 AM This report has been signed electronically.
--- NOTE | 2024-06-09 09:35 | PCM.POSTANE2 ---
Anesthesia Postop Eval I Sum Postop Eval Completion status Anesthesia document: Postop Eval 1 completed: Yes Anesthesia Postop Eval I Summary Anesthesia Postop Eval I Summary: Anesthesia Postop Eval I: Assessment Summary Airway patent Yes 06/09/24 08:42 [email or web address] Spontaneous unlabored Yes 06/09/24 08:42 [email or web address] respirations Mental status Awake,Calm 06/09/24 08:42 [email or web address] nausea No 06/09/24 08:42 [email or web address] Vomiting No 06/09/24 08:42 [email or web address] Anesthesia Postop Eval I: Fluid Summary Crystalloid volume administer 60 06/09/24 08:42 [email or web address] (ml) Colloids volume administered ( ml) Blood Product volume administered (ml) Total IV fluid infused 60 06/09/24 08:42 [email or web address] Anesthesia Postop Eval I: Summary Notes Anesthesia Complication No 06/09/24 08:42 [email or web address] Anesthesia Complication Comment: Post-operative progress note Anesthesia: Postop Eval II Evaluation Mental status: Awake Pain Level: 0 nausea: No Vomiting: No
== END 2024-06-09 09:06 | disposition home or self-care (01) ==
LOC: EN 07:09 → AC 07:10
PROVIDERS: PCP Internal Medicine; Referring Provider Internal Medicine; Visit Provider Internal Medicine Gastroenterology
PROC: 0DJD8ZZ Inspection of Lower Intestinal Tract, Via Natural or Artificial Opening Endoscopic (ICD-10-PCS; CPT 45378; principal; 2024-06-09 08:10)
DX: Z12.11 Encounter for screening for malignant neoplasm of colon (principal); K44.9 Diaphragmatic hernia without obstruction or gangrene; K57.30 Diverticulosis of large intestine without perforation or abscess without bleeding; K62.1 Rectal polyp; K64.4 Residual hemorrhoidal skin tags; K21.00 Gastro-esophageal reflux disease with esophagitis, without bleeding; D12.0 Benign neoplasm of cecum; Z79.899 Other long term (current) drug therapy; I10 Essential (primary) hypertension; E78.5 Hyperlipidemia, unspecified
CPT/HCPCS: 45385; 43239; 88305; 88312; A4216; J2405

== ENCOUNTER 2024-06-10 13:12 | Observation (INO) | payer OTHER, SELFPAY ==
[2024-06-10] VITALS (13 sets, daily range): BP systolic 133–164; BP diastolic 80–92; PULSE 56–83; RESP 15–18; TEMP 36.4–37.1; O2SAT 97–100; BMI 30.2
--- NOTE | 2024-06-10 13:53 | RAD_ITS ---
STUDY: X-RAY - ABDOMEN/PELVIS REASON FOR EXAM: Male, 58 years old. Abdominal pain and rectal bleeding. TECHNIQUE: Single AP view of the abdomen / pelvis. COMPARISON: None. FINDINGS: Normal visualized lung bases. There is an unremarkable bowel gas pattern. 2 calcifications are seen in the right upper quadrant suggestive of a gallstones. The visualized liver, spleen and kidneys are grossly normal in size and morphology. Normal soft tissue structures. There are degenerative changes of the visualized lumbar spine. RAD/Abdomen Single View (Portable) IMPRESSION: 2 calcifications are seen in the right upper quadrant suggestive of gallstones. Electronically Signed: Deni Rosa MD at 14:37 EDT ,
[2024-06-10 14:27] LABS: Absolute Lymphocyte Count 2.33 X10^3/uL (0.83-4.51); Absolute Neutrophil Count 10.4 X10^3/uL (2.0-7.7); Basophil# 0.07 X10^3/uL; Basophil% 0.5 % (0-1); Eosinophil# 0.08 X10^3/uL; Eosinophils% 0.6 % (0-5); Hematocrit 36.4 % (40-54); Hemoglobin 12.8 g/dL (13.0-16.5); Lymphocyte # 2.33 X10^3/ul (0.83-4.51); Lymphocyte % 16.8 % (19-41); Mean Corp Hgb Conc 35.2 g/dL (32-36); Mean Corpuscular Volume 88.1 fL (80-94); Monocyte# 0.98 X10^3/uL; Monocyte% 7.1 % (0-10); NRBC Flagged by Analyzer 0 % (0-5); Neutrophil # 10.35 X10^3/uL (2.7-7.7); Neutrophil % 74.4 % (47-70); Platelet Count 277 K/mm3 (150-450); RBC Distribution Width CV 13.1 % (11.6-14.6); RBC Distribution Width SD 42.4 fl (35.1-43.9); Red Blood Count 4.13 M/mm3 (4.6-6.2); White Blood Count 13.9 K/mm3 (4.4-11.0)
[2024-06-10 14:37] LABS: ALB/GLOB Ratio 1.3 RATIO (0.9-2.4); AST(SGOT) 19 U/L (15-37); Alanine Aminotransfer ALT/SGPT 31 U/L (16-61); Albumin, Serum 3.9 g/dL (3.2-5.0); Alkaline Phosphatase 56 U/L (45-117); Anion Gap 8 (5-15); BUN 27 mg/dL (7-18); Calcium,Total 8.7 mg/dL (8.5-10.1); Chloride 107 mmol/L (98-107); Creatinine, Serum 1.23 mg/dL (0.70-1.30); EST Glomerular Filtration Rate 64 mL/min (>60); Est Glom Filt Rate - Afr Amer 77 mL/min (>60); Estimated Creatinine Clearance 74.96 ml/min; Glucose 102 mg/dL (74-106); Protein, Total 6.9 g/dL (6.4-8.2); Sodium Level 138 mmol/L (136-145)
--- NOTE | 2024-06-10 14:48 | EDS_ITS ---
HPI <ABIOLA Canales - Last Filed: 06/10/24 18:21> History of Present Illness Chief Complaint: GI Bleed Narrative Narrative: Patient is a 58-year-old male with history of GERD who presents to the emergency department with rectal bleeding after having a colonoscopy/EGD yesterday. Patient sees Dr. Hart, patient states on June 08, 2024, he had both an EGD and a colonoscopy. I did read the report, it was mostly unremarkable, patient did have 2 polyps that were removed. Patient had this test secondary to screening. Patient states has had 3 decent sized bowel movements that was mostly blood. Patient called Dr. Hart's office however did not get a hold of anybody. Patient is here for evaluation. Pay states he has intermittent abdominal cramping, however no dizziness or chest pain. PFSH <ABIOLA Canales - Last Filed: 06/10/24 18:21> FORMERLY [facility] Medical History Depression Anxiety Back pain History of diverticulitis Wears glasses Wears contact lenses Alcohol use Marijuana use Injury of back Non-smoker History of stress test Hyperlipidemia PTSD (post-traumatic stress disorder) Essential (primary) hypertension GERD (gastroesophageal reflux disease) Erosive esophagitis Muscle weakness (generalized) Lump in throat Home Medications ?Medication ?Instructions ?Recorded ?Last Taken ?Type lisinopril 20 mg tablet 20 mg PO BID 03/16/20 06/08/24 History escitalopram oxalate 10 mg tablet 20 mg PO BID 03/10/22 06/08/24 History (Lexapro) amlodipine 5 mg tablet 5 mg PO DAILY 06/08/24 06/08/24 History hydrochlorothiazide 25 mg tablet 25 mg PO DAILY 06/10/24 Unknown History Allergy/AdvReac Type Severity Reaction Status Date / Time No Known Allergies Allergy Verified 06/10/24 13:12 Family History Mother Hypertension Father Hyperlipidemia Surgical History Hx of bilateral cataract extraction History of esophagogastroduodenoscopy (EGD) History of tonsillectomy Social History Smoking Status: Never smoker alcohol intake: current ROS <OSMIN CanalesC - Last Filed: 06/10/24 18:21> ROS ED ROS Narrative Constitutional: Negative for fever, chills, weight loss, weakness Eyes: Negative for vision loss, vision change, double vision ENT: Negative for any sore throat, ear pain, congestion Cardiovascular: Negative for any chest pain, tightness, palpitations Respiratory: Negative for any cough, sputum production, hemoptysis, dyspnea, dyspnea on exertion, orthopnea Gastrointestinal: Negative for any vomiting, diarrhea, constipation, blood in vomit. Positive for abdominal cramping, blood in stool, nausea : Negative for any urinary frequency, dysuria, retention, blood in urine Muscle skeletal: Negative for any neck pain, back pain Neurological: Negative for any headache, syncope, dizziness Skin: Negative for any rashes, itching, abrasions, lacerations Psychiatric: Negative for any depression, anxiety, stress, suicidal ideation, homicidal ideation Hematologic: Negative for any excessive bruising, easy bleeding EXAM <ABIOLA Canales - Last Filed: 06/10/24 18:21> Physical Exam Narrative Exam Narrative: Vital signs reviewed. HEET: Head normocephalic atraumatic, TMs clear bilaterally. Posterior pharynx is clear, moist mucous membranes. Nares clear bilaterally. Neck: Supple with no lymphadenopathy or tenderness. No signs of meningismus. Cardiac: Regular rate and rhythm no murmurs gallops or rubs, equal peripheral pulses bilaterally. Respiratory: Lungs clear to auscultation bilaterally. No chest tenderness. Abdomen: Soft, nontender, nondistended. No abdominal bruit or pulsatile masses. No hepatosplenomegaly Extremities: No peripheral edema, no signs of gross trauma or deformity. Active full range of motion of all extremities. Neuro: Cranial nerves II through XII intact, no focal neurological deficits. Skin: Clean dry and intact with no rash, purpura, petechiae, vesicles or pustules. Backs/flank: No CVA tenderness, no midline spinal tenderness, no deformity. Psych: Normal mood and affect. No SI, HI or acute psychosis. Rectal: Rectal exam was completed with female nurse family consumer science [employer] teacher, nurse Holbrook. Patient did have a large skin tag just distal to the rectum, patient looked to have chronic hemorrhoids, the rectal vault was mostly empty however he did have some blood on my finger. No mass felt. The prostate was smooth, no pain or bogginess. Const Vital Signs: 06/10/24 13:12 06/10/24 14:57 06/10/24 15:12 Temperature 98 F Temperature Source Temporal Pulse Rate 83 61 Respiratory Rate 18 16 Blood Pressure 135/92 H 152/88 H Blood Pressure Mean 106 109 Pulse Ox 98 98 97 Oxygen Delivery Method Room Air Room Air Room Air 06/10/24 17:00 Temperature Temperature Source Pulse Rate 64 Respiratory Rate 16 Blood Pressure 133/84 H Blood Pressure Mean 100 Pulse Ox 99 Oxygen Delivery Method Room Air <Dr. Ro Sullivan DO - Last Filed: 06/11/24 00:04> Physical Exam Const Vital Signs: 06/10/24 13:12 06/10/24 14:57 06/10/24 15:12 Temperature 98 F Temperature Source Temporal Pulse Rate 83 61 Respiratory Rate 18 16 Blood Pressure 135/92 H 152/88 H Blood Pressure Mean 106 109 Pulse Ox 98 98 97 Oxygen Delivery Method Room Air Room Air Room Air 06/10/24 17:00 Temperature Temperature Source Pulse Rate 64 Respiratory Rate 16 Blood Pressure 133/84 H Blood Pressure Mean 100 Pulse Ox 99 Oxygen Delivery Method Room Air MDM <ABIOLA Canales - Last Filed: 06/10/24 18:21> [facility] Lab Data Labs: Laboratory Results - last 24 hr 06/10/24 06/10/24 06/10/24 14:05 15:00 15:11 WBC 13.9 H RBC 4.13 L Hgb 12.8 L Hct 36.4 L MCV 88.1 MCH 31.0 MCHC 35.2 RDW Std Deviation 42.4 RDW Coeff of [place] 13.1 Plt Count 277 MPV 10.0 Immature Gran % (Auto) 0.600 Neut % (Auto) 74.4 H Lymph % (Auto) 16.8 L [place] % (Auto) 7.1 Eos % (Auto) 0.6 Baso % (Auto) 0.5 Absolute Neuts (auto) 10.4 H Absolute Lymphs (auto) 2.33 Nucleated RBC % 0 PT INR Sodium 138 Potassium 3.0 L Chloride 107 Carbon Dioxide 24.0 Anion Gap 8 BUN 27 H Creatinine 1.23 Estim Creat Clear Calc 74.96 Est GFR (MDRD) Af Amer 77 Est GFR (MDRD) Non-Af 64 BUN/Creatinine Ratio 22.0 H Glucose 102 Lactic Acid Calcium 8.7 Magnesium Total Bilirubin 0.30 AST 19 ALT 31 Alkaline Phosphatase 56 Troponin I High Sens Total Protein 6.9 Albumin 3.9 Globulin 3.0 Albumin/Globulin Ratio 1.3 Urine Color Straw Urine Clarity Clear Urine pH 6.0 Ur Specific [place] 1.020 Urine Protein Negative Urine Glucose (UA) Normal Urine Ketones Negative Urine Occult Blood Negative Urine Nitrite Negative Urine Bilirubin Negative Urine Urobilinogen Normal Ur Leukocyte Esterase Negative Urine RBC 0 SEEN Urine WBC 0 SEEN Ur Squamous Epith Cells 0 SEEN Urine Bacteria 0 SEEN Urine Mucus 0 SEEN Blood Type A POSITIVE Antibody Screen NEGATIVE 06/10/24 06/10/24 15:45 17:32 WBC 14.9 H RBC 3.80 L Hgb 11.7 L Hct 33.6 L MCV 88.4 MCH 30.8 MCHC 34.8 RDW Std Deviation 42.6 RDW Coeff of [place] 13.2 Plt Count 281 MPV 9.8 Immature Gran % (Auto) Neut % (Auto) Lymph % (Auto) [place] % (Auto) Eos % (Auto) Baso % (Auto) Absolute Neuts (auto) Absolute Lymphs (auto) Nucleated RBC % PT 14.2 INR 1.1 Sodium Potassium Chloride Carbon Dioxide Anion Gap BUN Creatinine Estim Creat Clear Calc Est GFR (MDRD) Af Amer Est GFR (MDRD) Non-Af BUN/Creatinine Ratio Glucose Lactic Acid 1.7 Calcium Magnesium 2.1 Total Bilirubin AST ALT Alkaline Phosphatase Troponin I High Sens 4 Total Protein Albumin Globulin Albumin/Globulin Ratio Urine Color Urine Clarity Urine pH Ur Specific [place] Urine Protein Urine Glucose (UA) Urine Ketones Urine Occult Blood Urine Nitrite Urine Bilirubin Urine Urobilinogen Ur Leukocyte Esterase Urine RBC Urine WBC Ur Squamous Epith Cells Urine Bacteria Urine Mucus Blood Type Antibody Screen Radiography Diagnostic Testing: Clinical Impression(s) from Imaging Studies KUB X-Ray 06/10/24 13:53 IMPRESSION: 2 calcifications are seen in the right upper quadrant suggestive of gallstones. Electronically Signed: Deni Rosa MD at 14:37 EDT , Abdomen/Pelvis CTA 06/10/24 15:37 IMPRESSION: No definite acute abnormality. Cholelithiasis. Electronically Signed: Kenny Miller MD at 16:46 EDT , Chest X-Ray 06/10/24 16:05 IMPRESSION: Normal x-ray examination of the chest. Electronically Signed: Kenny Miller MD at 17:14 EDT , EKG Normal sinus rhythm: Attestation: I personally reviewed and interpreted this EKG as follows: Interpretation: Sinus Rhythm Comments: Normal sinus rhythm, rate of 62 bpm, [place] interval 174 ms, QRS duration 106 ms, no acute ST elevation, no acute infarct noted.` Treatment and Re-Evaluation :: Differential diagnosis includes however is not limited to: Rectal hemorrhage, bowel perforation, bowel irritation, diverticulitis Patient appears generally well, vital signs are stable, patient is nontoxic- appearing. Presenting to the emergency department for complaints of rectal bleeding post colonoscopy yesterday. Physical examination was unremarkable. There is no hemorrhage noted. I will reach out to to Dr. Hart. Spoke with Dr. Hart, recommended CTA of the abdomen pelvis. Patient's CBC shows a slight leukocytosis with a white blood count 13.9, patient's hemoglobin is 12.8, patient is usually around 14-15. PT/INR within normal limits. Patient's chemistry shows a potassium of 3.0, elevated BUN at 27, troponin ordered. CTA of the abdomen/pelvis distal cholecystitis, no acute process. Patient did have a repeat CBC, this showed the new hemoglobin was 11.7, this is a 1 point drop. Secondary this finding, I did reach out to Dr. Hart again, he is aware, I did give IV Protonix. Patient also has some dark blood this coming of his rectum at this time. Patient will need to be admitted to the hospital. Patient will need to be scoped tomorrow according to Dr. Hart. All questions answered, patient stable for admission. <Dr. Ro Sullivan, DO - Last Filed: 06/11/24 00:04> [facility] Lab Data Attestation: I reviewed the patient's lab results. Labs: Laboratory Results - last 24 hr 06/10/24 06/10/24 06/10/24 14:05 15:00 15:11 WBC 13.9 H RBC 4.13 L Hgb 12.8 L Hct 36.4 L MCV 88.1 MCH 31.0 MCHC 35.2 RDW Std Deviation 42.4 RDW Coeff of [place] 13.1 Plt Count 277 MPV 10.0 Immature Gran % (Auto) 0.600 Neut % (Auto) 74.4 H Lymph % (Auto) 16.8 L [place] % (Auto) 7.1 Eos % (Auto) 0.6 Baso % (Auto) 0.5 Absolute Neuts (auto) 10.4 H Absolute Lymphs (auto) 2.33 Nucleated RBC % 0 PT INR Sodium 138 Potassium 3.0 L Chloride 107 Carbon Dioxide 24.0 Anion Gap 8 BUN 27 H Creatinine 1.23 Estim Creat Clear Calc 74.96 Est GFR (MDRD) Af Amer 77 Est GFR (MDRD) Non-Af 64 BUN/Creatinine Ratio 22.0 H Glucose 102 Lactic Acid Calcium 8.7 Magnesium Total Bilirubin 0.30 AST 19 ALT 31 Alkaline Phosphatase 56 Troponin I High Sens Total Protein 6.9 Albumin 3.9 Globulin 3.0 Albumin/Globulin Ratio 1.3 Urine Color Straw Urine Clarity Clear Urine pH 6.0 Ur Specific [place] 1.020 Urine Protein Negative Urine Glucose (UA) Normal Urine Ketones Negative Urine Occult Blood Negative Urine Nitrite Negative Urine Bilirubin Negative Urine Urobilinogen Normal Ur Leukocyte Esterase Negative Urine RBC 0 SEEN Urine WBC 0 SEEN Ur Squamous Epith Cells 0 SEEN Urine Bacteria 0 SEEN Urine Mucus 0 SEEN Blood Type A POSITIVE Antibody Screen NEGATIVE 06/10/24 06/10/24 15:45 17:32 WBC 14.9 H RBC 3.80 L Hgb 11.7 L Hct 33.6 L MCV 88.4 MCH 30.8 MCHC 34.8 RDW Std Deviation 42.6 RDW Coeff of [place] 13.2 Plt Count 281 MPV 9.8 Immature Gran % (Auto) Neut % (Auto) Lymph % (Auto) [place] % (Auto) Eos % (Auto) Baso % (Auto) Absolute Neuts (auto) Absolute Lymphs (auto) Nucleated RBC % PT 14.2 INR 1.1 Sodium Potassium Chloride Carbon Dioxide Anion Gap BUN Creatinine Estim Creat Clear Calc Est GFR (MDRD) Af Amer Est GFR (MDRD) Non-Af BUN/Creatinine Ratio Glucose Lactic Acid 1.7 Calcium Magnesium 2.1 Total Bilirubin AST ALT Alkaline Phosphatase Troponin I High Sens 4 Total Protein Albumin Globulin Albumin/Globulin Ratio Urine Color Urine Clarity Urine pH Ur Specific [place] Urine Protein Urine Glucose (UA) Urine Ketones Urine Occult Blood Urine Nitrite Urine Bilirubin Urine Urobilinogen Ur Leukocyte Esterase Urine RBC Urine WBC Ur Squamous Epith Cells Urine Bacteria Urine Mucus Blood Type Antibody Screen Radiography Diagnostic Testing: Clinical Impression(s) from Imaging Studies KUB X-Ray 06/10/24 13:53 IMPRESSION: 2 calcifications are seen in the right upper quadrant suggestive of gallstones. Electronically Signed: Deni Rosa MD at 14:37 EDT , Abdomen/Pelvis CTA 06/10/24 15:37 IMPRESSION: No definite acute abnormality. Cholelithiasis. Electronically Signed: Kenny Miller MD at 16:46 EDT , Chest X-Ray 06/10/24 16:05 IMPRESSION: Normal x-ray examination of the chest. Electronically Signed: Kenny Miller MD at 17:14 EDT , Treatment and Re-Evaluation :: Differential diagnosis includes however is not limited to: Rectal hemorrhage, bowel perforation, bowel irritation, diverticulitis Patient appears generally well, vital signs are stable, patient is nontoxic-ap pearing. Presenting to the emergency department for complaints of rectal bleeding post colonoscopy yesterday. Physical examination was unremarkable. There is no hemorrhage noted. I will reach out to to Dr. Hart. Spoke with Dr. Hart, recommended CTA of the abdomen pelvis. Patient's CBC shows a slight leukocytosis with a white blood count 13.9, patient's hemoglobin is 12.8, patient is usually around 14-15. PT/INR within normal limits. Patient's chemistry shows a potassium of 3.0, elevated BUN at 27, troponin ordered. CTA of the abdomen/pelvis distal cholecystitis, no acute process. Patient did have a repeat CBC, this showed the new hemoglobin was 11.7, this is a 1 point drop. Secondary this finding, I did reach out to Dr. Hart again, he is aware, I did give IV Protonix. Patient also has some dark blood this coming of his rectum at this time. Patient will need to be admitted to the hospital. Patient will need to be scoped tomorrow according to Dr. Hart. All questions answered, patient stable for admission. I have personally performed a face to face assessment of the patient and have reviewed the JEFF Note. I performed a substantive portion of the visit including all aspects of the following. My hart findings include: History is Patient is a 58-year-old male with history of GERD and diverticulitis presenting for rectal bleeding. Patient had EGD and colon Skippy with polypectomy yesterday. From chart review patient had 1 polyp removed from the rectum and another from the cecum. 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 Patient started having bright red blood per rectum with intermittent crampy abdominal pain. He showed me a picture of the blood in the toilet bowl and it was significant amounts. Patient denies any other symptoms. Patient's vital signs are normal and the emergency room. Patient does have a mild leukocytosis of 13.9 which is nonspecific. His hemoglobin is 12.8 however chart review shows that his hemoglobin in February was 15.2 and prior to that it was 14. I suspect that this is baseline. Platelets are normal. BUN is also elevated at 27 with a normal creatinine. Case was discussed with Dr. Hart who does recommend a CT of the abdomen and pelvis. This does not show any acute process. Repeat H&H 4 hours after additional 1 (patient does not receive any IV fluids) now shows a hemoglobin 11.7. Patient is typed and screened. Lactate is added on which is normal. Patient does not have an obvious coagulopathy. While the emergency room patient does have another bowel movement that is more black jelly per nursing report. Case is discussed with . Friend will take the patient for endoscopy tonight and will be admitted to the medicine service. Patient and agreeable with this plan of care. Patient has remained hemodynamically stable in the emergency room. Other additions or changes: [None] Discharge Plan Dx/Rx/DC Orders Clinical Impression: GI bleed, Abdominal pain, Anemia Disposition Disposition: Acute Care Hospital [facility] Discharge Date/Time: 06/10/24 18:54
[2024-06-10 15:07] LABS: Bacteria 0 SEEN /hpf (None Seen); Mucous, Urine 0 SEEN /hpf (<or=2+); Red Blood Cells-Urine 0 SEEN /hpf (0-5); Squamous Epithelial Cells - UA 0 SEEN /hpf (0-5); White Blood Cells 0 SEEN /hpf (0-5)
[2024-06-10 15:17] LABS: Color, Urine Straw (Yellow); Glucose, Dipstick Normal (Normal); Ketone-Dipstick Negative (Negative); Leukocyte Esterase-Dipstick Negative /ul (Negative); Nitrite-Dipstick Negative (Negative); Occult Blood-Urine Negative /ul (Negative); Protein-Dipstick Negative (Negative); Urine Bilirubin Dipstick Negative (Negative); Urine Clarity Clear (Clear); Urine Urobilinogen Normal (Normal)
--- NOTE | 2024-06-10 15:37 | CT_ITS ---
INDICATION: GI bleed EXAMINATION: CTA abdomen and pelvis - TECHNIQUE: Routine abdominal CT angiogram protocol was performed with IV contrast. MIP images provided. A radiation dose optimization technique was used for this scan. COMPARISON: None. FINDINGS: Lung bases: Normal. Liver: Normal. No bile ductal dilatation. Gallbladder: Cholelithiasis. Nondistended gallbladder. Spleen: Normal. Adrenal gland: Normal. Kidneys: Normal. No hydronephrosis or stone formation. Pancreas:Normal. Bowel gas pattern: Nonobstructive. Appendix: Normal. Free air: None. Free fluid: None. Pelvis: Pelvic organs: No mass lesion noted. Moderate prostate enlargement. Bone survey: No aggressive bony lesions. No acute fractures. Degenerative changes. Adenopathy: No significant pathologic adenopathy detected. Other: None. Vascular: Normal vascular anatomy, no significant atherosclerosis. No aneurysmal dilatation. No evidence of active bleeding. CT/CTA Abd/Pelvis W/WO Contrast IMPRESSION: No definite acute abnormality. Cholelithiasis. Electronically Signed: Kenny Miller MD at 16:46 EDT ,
[2024-06-10 16:03] LABS: International Normalized Ratio 1.1; Prothrombin Time (Protime)PT. 14.2 SECONDS (11.7-14.9)
--- NOTE | 2024-06-10 16:04 | EKG12_ITS ---
Test Reason : Blood Pressure : */* mmHG Vent. Rate : 62 BPM Atrial Rate : 62 BPM P-R Int : 174 ms QRS Dur : 106 ms QT Int : 416 ms P-R-T Axes : 59 -35 30 degrees QTcB Int : 422 ms Normal sinus rhythm Left axis deviation Abnormal ECG Confirmed by KOLTON ALLEN, MEGHAN ([id number]), copy editor DOMO EDWARDS ([id number]) on 06/13/2024 9:36:08 AM Referred By: Confirmed By: MEGHAN HI MD
--- NOTE | 2024-06-10 16:05 | RAD_ITS ---
STUDY: X-RAY CHEST REASON FOR EXAM: Male, 58 years old. chest pain TECHNIQUE: Two view, frontal and lateral, with oblique projections. COMPARISON: 03/16/2020. FINDINGS: The lungs are clear and expanded. There is no demonstrated pleural abnormality. Normal size heart. Normal mediastinum and chris. Normal visualized pulmonary arteries. Normal visualized aortic arch and descending thoracic aorta. Normal visualized thoracic spine. Normal visualized ribs, clavicles, and shoulders. There is no demonstrated abnormality of the visualized soft tissue structures of the upper abdomen. RAD/Chest 1 View (Portable) IMPRESSION: Normal x-ray examination of the chest. Electronically Signed: Kenny Miller MD at 17:14 EDT ,
[2024-06-10 16:22] LABS: Lactic Acid 1.7 mmol/L (0.4-1.9)
[2024-06-10 16:23] LABS: Magnesium 2.1 mg/dL (1.6-2.6); Troponin-I HS (w/2H Reflex) 4 pg/mL (3.0-78.0)
[2024-06-10] MEDS: Pantoprazole Sodium 80 MG in 0.9% Normal Saline (50mL Bag) 15 ML 420 MG IV BOLUS (16:23)
[2024-06-10 17:39] LABS: Hematocrit 33.6 % (40-54); Hemoglobin 11.7 g/dL (13.0-16.5); Mean Corp Hgb Conc 34.8 g/dL (32-36); Mean Corpuscular Hgb 30.8 pg (27.0-32.0); Mean Corpuscular Volume 88.4 fL (80-94); Mean Platelet Vol. 9.8 fl (6.2-12.0); Platelet Count 281 K/mm3 (150-450); RBC Distribution Width CV 13.2 % (11.6-14.6); RBC Distribution Width SD 42.6 fl (35.1-43.9); White Blood Count 14.9 K/mm3 (4.4-11.0)
[2024-06-10 17:50] LABS: Reflex Troponin-HS? (from REC) Y
--- NOTE | 2024-06-10 18:37 | PCM.HP.STD ---
[facility] - General General Date of Admission: 06/10/24 Date of Service: 06/10/24 Chief Complaint: GI bleed HPI Narrative MARY CAMERON, is a 58 M who presents with lower GI bleed. On June 09, patient underwent an EGD and colonoscopy. He had biopsies on his EGD and had 2 polypectomies on his colonoscopy. Patient was doing well and then went to work today and was doing some heavy lifting. At some point thereafter he started having very profuse hematochezia. Presented to the emergency room and Schoeman was checked and was 12.8 and then went down to 11.7. Back in February was 15.2. Patient states that his hematochezia is slightly improving and is now black and tarry. Does have some abdominal cramping before he has his bowel movements. Has never had a GI bleed before. [facility] Medical History Depression Anxiety Back pain History of diverticulitis Wears glasses Wears contact lenses Alcohol use Marijuana use Injury of back Non-smoker History of stress test Hyperlipidemia PTSD (post-traumatic stress disorder) Essential (primary) hypertension GERD (gastroesophageal reflux disease) Erosive esophagitis Muscle weakness (generalized) Lump in throat Home Medications ?Medication ?Instructions ?Recorded ?Last Taken ?Type lisinopril 20 mg tablet 20 mg PO BID 03/16/20 06/08/24 History escitalopram oxalate 10 mg tablet 20 mg PO BID 03/10/22 06/08/24 History (Lexapro) amlodipine 5 mg tablet 5 mg PO DAILY 06/08/24 06/08/24 History hydrochlorothiazide 25 mg tablet 25 mg PO DAILY 06/10/24 Unknown History Allergy/AdvReac Type Severity Reaction Status Date / Time No Known Allergies Allergy Verified 06/10/24 13:12 Family History Mother Hypertension Father Hyperlipidemia Surgical History Hx of bilateral cataract extraction History of esophagogastroduodenoscopy (EGD) History of tonsillectomy Social History Smoking Status: Never smoker alcohol intake: current ROS ROS Narrative All review of systems were negative except as mentioned above in the history of present illness and the other review of systems. Vital Signs Vital Signs Vital Signs: 06/10/24 13:12 06/10/24 14:57 06/10/24 15:12 Temperature 36.6 C Temperature Source Temporal Pulse Rate 83 61 Respiratory Rate 18 16 Blood Pressure 135/92 H 152/88 H Blood Pressure Mean 106 109 Pulse Ox 98 98 97 Oxygen Delivery Method Room Air Room Air Room Air 06/10/24 17:00 Temperature Temperature Source Pulse Rate 64 Respiratory Rate 16 Blood Pressure 133/84 H Blood Pressure Mean 100 Pulse Ox 99 Oxygen Delivery Method Room Air Weight Weight: 95.4 kg Body Mass Index (BMI) 30.2 Physical Exam Const alert, no apparent distress and average body habitus HEENT normocephalic and head/scalp atraumatic Resp normal respiratory effort, no retractions, no use of accessory muscles and clear to auscultation bilaterally Cardio regular rate, regular rhythm, S1 normal heart sound and S2 normal heart sound GI normal to inspection, nondistended, normoactive bowel sounds, soft to palpation, non-tender and non-distended Extremity normal to inspection and no clubbing, cyanosis or edema Neuro moves all extremities Sensorium / Orientation: awake and alert Psych affect normal Results Lab / Micro Data Attestation: I reviewed the patient's lab results. 06/10/24 17:32 06/10/24 14:05 Labs: Laboratory Results - last 24 hr 06/10/24 14:05: WBC 13.9 H, RBC 4.13 L, Hgb 12.8 L, Hct 36.4 L, MCV 88.1, MCH 31.0, MCHC 35.2, RDW Std Deviation 42.4, RDW Coeff of [place]ison 13.1, Plt Count 277, MPV 10.0, Immature Gran % (Auto) 0.600, Neut % (Auto) 74.4 H, Lymph % (Auto) 16.8 L, [place] % (Auto) 7.1, Eos % (Auto) 0.6, Baso % (Auto) 0.5, Absolute Neuts (auto) 10.4 H, Absolute Lymphs (auto) 2.33, Nucleated RBC % 0, Sodium 138, Potassium 3.0 L, Chloride 107, Carbon Dioxide 24.0, Anion Gap 8, BUN 27 H, Creatinine 1.23, Estim Creat Clear Calc 74.96, Est GFR (MDRD) Af Amer 77, Est GFR (MDRD) Non-Af 64, BUN/Creatinine Ratio 22.0 H, Glucose 102, Calcium 8.7, Total Bilirubin 0.30, AST 19, ALT 31, Alkaline Phosphatase 56, Total Protein 6.9, Albumin 3.9, Globulin 3.0, Albumin/Globulin Ratio 1.3 06/10/24 15:00: Urine Color Straw, Urine Clarity Clear, Urine pH 6.0, Ur Specific [place] 1.020, Urine Protein Negative, Urine Glucose (UA) Normal, Urine Ketones Negative, Urine Occult Blood Negative, Urine Nitrite Negative, Urine Bilirubin Negative, Urine Urobilinogen Normal, Ur Leukocyte Esterase Negative, Urine RBC 0 SEEN, Urine WBC 0 SEEN, Ur Squamous Epith Cells 0 SEEN, Urine Bacteria 0 SEEN, Urine Mucus 0 SEEN 06/10/24 15:11: Blood Type A POSITIVE, Antibody Screen NEGATIVE 06/10/24 15:45: PT 14.2, INR 1.1, Lactic Acid 1.7, Magnesium 2.1, Troponin I High Sens 4 06/10/24 17:32: WBC 14.9 H, RBC 3.80 L, Hgb 11.7 L, Hct 33.6 L, MCV 88.4, MCH 30.8, MCHC 34.8, RDW Std Deviation 42.6, RDW Coeff of Maddison 13.2, Plt Count 281, MPV 9.8 Micro: Microbiology 06/10/24 15:00 Stool Stool Occult Blood (SHERLYN) - Final Occult Blood Positive Imaging Radiology Impression KUB X-Ray 06/10/24 13:53 IMPRESSION: 2 calcifications are seen in the right upper quadrant suggestive of gallstones. Electronically Signed: Deni Rosa MD at 14:37 EDT , Abdomen/Pelvis CTA 06/10/24 15:37 IMPRESSION: No definite acute abnormality. Cholelithiasis. Electronically Signed: Kenny Miller MD at 16:46 EDT , Chest X-Ray 06/10/24 16:05 IMPRESSION: Normal x-ray examination of the chest. Electronically Signed: Kenny Miller MD at 17:14 EDT , Assessment & Plan Assessment/Plan (1) GI bleed: PLAN: Suspect related to patient's recent polypectomy. Discussed with Dr. Hart in the patient's room and he feels that it is highly unlikely this is related with his esophageal biopsies. Patient did have a CTA of his abdomen pelvis showed no acute process. Plan is to have a repeat colonoscopy to evaluate the source of source of bleeding. DW Dr. Hart, plan to take patient to colonoscopy tonight. (2) Anemia: PLAN: Acute blood loss Secondary to GI bleed patient type and screen in the emergency room. Plan is to continue to monitor. Will repeat a check tonight as well as tomorrow morning. Plan for transfusion if hemoglobin is 7 or less. PLAN: Plan Chronic conditions Hypertension: Continue with amlodipine and lisinopril. Will hold off on HCTZ for now. Depression: Continue with escitalopram VTE prophylaxis with SCDs. Chemical prophylaxis contraindicated. Case discussed with the patient's at bedside. Charges/Coding Visit Charges Inpatient E&M: 58944 Init Hosp L2
[2024-06-10 18:44] LABS: Troponin-I HS 6 pg/mL (3.0-78.0)
--- NOTE | 2024-06-10 19:24 | EX.PCM.CON.G ---
HPI Consult Data Date of Consult: 06/10/24 HPI Narrative Reason for Consultation: GI bleed HPI Narrative: MARY CAMERON, is a 58 M who has a Hx of erosive esophagitis when he was last scoped in 2011 when he lived in [place]. Colonoscopy was normal, it was recommended he get neck screening colonoscopy in 10 years. At the time of his diagnosis of erosive esophagitis he was having significant heartburn and belching. He used to take rx esomeprazole, then when he didn't have insurance he tried OTC esomeprazole but it caused stomach upset. Since that time he has drastically improved his diet, becomes more physically active, and lost weight. So he does not have significant heartburn at this time. But he does continue to have belching which does not seem to be due to any particular food or other symptoms. Denies abdominal pain. No nausea, vomiting, dysphagia. No bowel concerns, no diarrhea or constipation. No melena or hematochezia. OV 10.1.24; pt has been doing well. He no longer has any heartburn or belching. He is not currently taking a daily PPI or any medications for reflux. His last colonoscopy was 12 years ago so he would like to be scheduled for a colonoscopy today. He also wished to have an EGD since he has a hx of esophagitis. He denies abdominal pain, heartburn, n/v, constipation, diarrhea or melena. He presented to the emergency department with rectal bleeding after having a colonoscopy/EGD yesterday. Patient did have 2 polyps that were removed. Patient had this test secondary to screening. Patient states has had 3 decent sized bowel movements that was mostly blood. [facility] Medical History Depression Anxiety Back pain History of diverticulitis Wears glasses Wears contact lenses Alcohol use Marijuana use Injury of back Non-smoker History of stress test Hyperlipidemia PTSD (post-traumatic stress disorder) Essential (primary) hypertension GERD (gastroesophageal reflux disease) Erosive esophagitis Muscle weakness (generalized) Lump in throat Home Medications ?Medication ?Instructions ?Recorded ?Last Taken ?Type lisinopril 20 mg tablet 20 mg PO BID 03/16/20 06/08/24 History escitalopram oxalate 10 mg tablet 20 mg PO BID 03/10/22 06/08/24 History (Lexapro) amlodipine 5 mg tablet 5 mg PO DAILY 06/08/24 06/08/24 History hydrochlorothiazide 25 mg tablet 25 mg PO DAILY 06/10/24 Unknown History Allergy/AdvReac Type Severity Reaction Status Date / Time No Known Allergies Allergy Verified 06/10/24 13:12 Family History Mother Hypertension Father Hyperlipidemia Surgical History Hx of bilateral cataract extraction History of esophagogastroduodenoscopy (EGD) History of tonsillectomy Social History Smoking Status: Never smoker alcohol intake: current ROS ROS Narrative All review of systems were negative except as mentioned above in the history of present illness and the other review of systems. Physical Exam Const alert, no apparent distress and average body habitus HEENT normocephalic and head/scalp atraumatic Resp normal respiratory effort, no retractions, no use of accessory muscles and clear to auscultation bilaterally Cardio regular rate, regular rhythm, S1 normal heart sound and S2 normal heart sound GI normal to inspection, nondistended, normoactive bowel sounds, soft to palpation, non-tender and non-distended Extremity normal to inspection and no clubbing, cyanosis or edema Neuro moves all extremities Sensorium / Orientation: awake and alert Psych affect normal Lab / Micro Data 06/10/24 17:32 06/10/24 14:05 Labs: Laboratory Results - last 24 hr 06/10/24 14:05: WBC 13.9 H, RBC 4.13 L, Hgb 12.8 L, Hct 36.4 L, MCV 88.1, MCH 31.0, MCHC 35.2, RDW Std Deviation 42.4, RDW Coeff of Maddison 13.1, Plt Count 277, MPV 10.0, Immature Gran % (Auto) 0.600, Neut % (Auto) 74.4 H, Lymph % (Auto) 16.8 L, [place] % (Auto) 7.1, Eos % (Auto) 0.6, Baso % (Auto) 0.5, Absolute Neuts (auto) 10.4 H, Absolute Lymphs (auto) 2.33, Nucleated RBC % 0, Sodium 138, Potassium 3.0 L, Chloride 107, Carbon Dioxide 24.0, Anion Gap 8, BUN 27 H, Creatinine 1.23, Estim Creat Clear Calc 74.96, Est GFR (MDRD) Af Amer 77, Est GFR (MDRD) Non-Af 64, BUN/Creatinine Ratio 22.0 H, Glucose 102, Calcium 8.7, Total Bilirubin 0.30, AST 19, ALT 31, Alkaline Phosphatase 56, Total Protein 6.9, Albumin 3.9, Globulin 3.0, Albumin/Globulin Ratio 1.3 06/10/24 15:00: Urine Color Straw, Urine Clarity Clear, Urine pH 6.0, Ur Specific [place] 1.020, Urine Protein Negative, Urine Glucose (UA) Normal, Urine Ketones Negative, Urine Occult Blood Negative, Urine Nitrite Negative, Urine Bilirubin Negative, Urine Urobilinogen Normal, Ur Leukocyte Esterase Negative, Urine RBC 0 SEEN, Urine WBC 0 SEEN, Ur Squamous Epith Cells 0 SEEN, Urine Bacteria 0 SEEN, Urine Mucus 0 SEEN 06/10/24 15:11: Blood Type A POSITIVE, Antibody Screen NEGATIVE 06/10/24 15:45: PT 14.2, INR 1.1, Lactic Acid 1.7, Magnesium 2.1, Troponin I High Sens 4 06/10/24 17:32: WBC 14.9 H, RBC 3.80 L, Hgb 11.7 L, Hct 33.6 L, MCV 88.4, MCH 30.8, MCHC 34.8, RDW Std Deviation 42.6, RDW Coeff of Maddison 13.2, Plt Count 281, MPV 9.8 06/10/24 18:17: Troponin I High Sens 6 Micro: Microbiology 06/10/24 15:00 Stool Stool Occult Blood (SHERLYN) - Final Occult Blood Positive Imaging Radiology Impression KUB X-Ray 06/10/24 13:53 IMPRESSION: 2 calcifications are seen in the right upper quadrant suggestive of gallstones. Electronically Signed: Deni Rosa MD at 14:37 EDT , Abdomen/Pelvis CTA 06/10/24 15:37 IMPRESSION: No definite acute abnormality. Cholelithiasis. Electronically Signed: Kenny Miller MD at 16:46 EDT , Chest X-Ray 06/10/24 16:05 IMPRESSION: Normal x-ray examination of the chest. Electronically Signed: Kenny Miller MD at 17:14 EDT , Assessment & Plan Assessment/Plan (1) GI bleed: PLAN: Suspect related to patient's recent polypectomy. I think it is highly unlikely this is related with his esophageal biopsies. Patient did have a CTA of his abdomen pelvis showed no acute process. Plan is to have a repeat colonoscopy to evaluate the source of source of bleeding. The plan to take patient to colonoscopy tonight. (2) Anemia: PLAN: Acute blood loss Secondary to GI bleed patient type and screen in the emergency room. Plan is to continue to monitor. Will repeat a check tonight as well as tomorrow morning. Plan for transfusion if hemoglobin is 7 or less. PLAN: Plan Case discussed with the patient's at bedside. Charges/Coding Visit Charges Inpatient E&M: 17027 Init Hosp L3
[2024-06-10] MEDS: 0.9% Normal Saline (Pres. free 10 ML Vial (20:11)
[2024-06-10] MEDS: Epinephrine (1 mg/ml) 1 MG/ML VIAL (20:11)
--- NOTE | 2024-06-10 20:47 | OP.CCLET_ITS ---
06/10/2024 Valeria Gonzalez [address] [place] [address] Re : Colonoscopy procedure for Joey Perry Dear Dr. Gonzalez This procedure was performed on Monday, June 10, 2024. My impressions and recommendations are as follows: Impressions : - Preparation of the colon was poor. - Blood in the entire examined colon. - A single (solitary) ulcer in the cecum. Injected. Clips were placed. 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 - No specimens collected. Recommendations : - [facility]. - Full liquid diet. - Continue present medications. - No repeat colonoscopy due to no evidence of mucosal or other abnormalities on today's exam. My findings are described in the full procedure note, which is enclosed. If I can be of further assistance, please feel free to contact me at . Sincerely, Dakotah Hart, 06/10/2024 8:46:49 PM This report has been signed electronically.
--- NOTE | 2024-06-10 20:47 | OP.COLON_ITS ---
Patient Name: Joey Perry Procedure Date: 06/10/2024 7:25 PM Date of : 1965 Age: 58 Procedure: Colonoscopy Indications: Hematochezia Providers: Dakotah Hart DO Medicines: Monitored Anesthesia Care Patient Profile: This is a 58 year old male. Refer to note in patient chart for documentation of history and physical. Last Colonoscopy: 1 week ago. Complications: No immediate complications. Procedure: Pre-Anesthesia Assessment: - Prior to the procedure, a History and Physical was performed, and patient medications and allergies were reviewed. The patient is competent. The risks and benefits of the procedure and the sedation options and risks were discussed with the patient. All questions were answered and informed consent was obtained. Patient identification and proposed procedure were verified by the physician in the pre-procedure area. Mental Status Examination: alert and oriented. Airway Examination: normal oropharyngeal airway and neck mobility. Respiratory Examination: clear to auscultation. CV Examination: normal. Prophylactic Antibiotics: The patient does not require prophylactic antibiotics. Prior Anticoagulants: The patient has taken no anticoagulant or antiplatelet agents except for NSAID medication. ASA Grade Assessment: II - A patient with mild systemic disease. After reviewing the risks and benefits, the patient was deemed in satisfactory condition to undergo the procedure. The anesthesia plan was to use monitored anesthesia care (MAC). Immediately prior to administration of medications, the patient was re-assessed for adequacy to receive sedatives. The heart rate, respiratory rate, oxygen saturations, blood pressure, adequacy of pulmonary ventilation, and response to care were monitored throughout the procedure. The physical status of the patient was re-assessed after the procedure. After I obtained informed consent, the scope was passed under direct vision. Throughout the procedure, the patient's blood pressure, pulse, and oxygen saturations were monitored continuously. The Colonoscope was introduced through the anus and advanced to the cecum, identified by appendiceal orifice and ileocecal valve. The colonoscopy was performed without difficulty. The patient tolerated the procedure well. The quality of the bowel preparation was poor. Scope In: 7:55:47 PM Scope Out: 8:39:02 PM Total Procedure Duration Time 0 hours 43 minutes 15 seconds Findings: The perianal and digital rectal examinations were normal. Hematin (altered blood/ocgbwt-lmjcrt-luav material) was found in the entire colon. A single (solitary) ten mm ulcer was found in the cecum. Oozing was present. Stigmata of recent bleeding were present. Clot removal with snare was attempted. This was successful and revealed a non-bleeding lesion with a visible vessel. Area was successfully injected with 10 mL of a 0.1 mg/mL solution of epinephrine for drug delivery. To close a defect after polypectomy, four hemostatic clips were successfully placed. Clip project management it specialist: [employer]. There was no bleeding at the end of the procedure. Impression: - Preparation of the colon was poor. - Blood in the entire examined colon. - A single (solitary) ulcer in the cecum. Injected. Clips were placed. Clip project management it specialist: [employer]. - No specimens collected. Recommendation: - [facility] care. - Full liquid diet. - Continue present medications. - No repeat colonoscopy due to no evidence of mucosal or other abnormalities on today's exam. Procedure Code(s): --- Professional --- 04466, Colonoscopy, flexible; with directed submucosal injection(s), any substance CPT copyright 2021 [employer]. All rights reserved. The codes documented in this report are preliminary and upon net sql developer review may be revised to meet current compliance requirements. Dakotah Hart DO 06/10/2024 8:46:49 PM This report has been signed electronically. Number of Addenda: 0 Note Initiated On: 06/10/2024 7:25 PM
--- NOTE | 2024-06-10 20:52 | PCM.POST.ANE ---
Anesthesia: Postop Eval I Current Vital Signs Temperature: 97.5 F Pulse Rate: 61 Blood Pressure: 149/80 Respiratory Rate: 16 Pulse Ox: 100 Oxygen Delivery Method: Room Air Assessment Airway patent: Yes Spontaneous unlabored respirations: Yes Mental status: Awake and Calm nausea: No Vomiting: No Anesthesia Complication: No Fluid Hydration Crystalloid volume administer (ml): 850 Total IV fluid infused: 850 Progress Note Anesthesia document: Postop Eval 1 completed: Yes
--- NOTE | 2024-06-10 21:05 | PCM.POSTANE2 ---
Anesthesia Postop Eval I Sum Postop Eval Completion status Anesthesia document: Postop Eval 1 completed: Yes Anesthesia Postop Eval I Summary Anesthesia Postop Eval I Summary: Anesthesia Postop Eval I: Assessment Summary Airway patent Yes 06/10/24 20:54 Spontaneous unlabored Yes 06/10/24 20:54 respirations Mental status Awake,Calm 06/10/24 20:54 nausea No 06/10/24 20:54 Vomiting No 06/10/24 20:54 Anesthesia Postop Eval I: Fluid Summary Crystalloid volume administer 850 06/10/24 20:54 (ml) Colloids volume administered ( ml) Blood Product volume administered (ml) Total IV fluid infused 850 06/10/24 20:54 Anesthesia Postop Eval I: Summary Notes Anesthesia Complication No 06/10/24 20:54 Anesthesia Complication Comment: Post-operative progress note Anesthesia: Postop Eval II Evaluation Mental status: Awake and Calm Pain Level: 0 nausea: No Vomiting: No Complications Anesthesia Complication: No
[2024-06-10] MEDS: 0.9% Normal Saline (1000mL) 1,000 ML 150 ML IV (21:39)
[2024-06-10] MEDS: oxyCODONE 5 MG Tablet PO (21:56)
[2024-06-10 23:23] LABS: Hematocrit 29.4 % (40-54); Hemoglobin 10.4 g/dL (13.0-16.5)
--- NOTE | 2024-06-10 23:50 | NURSING ---
H&H RESULT NOTED AT 10.4 & 29.4.
[2024-06-11 03:00] VITALS: O2SAT 97
[2024-06-11 03:21] VITALS: BP 112/65; PULSE 66; RESP 15; TEMP 36.8; O2SAT 97
[2024-06-11 04:46] LABS: Absolute Lymphocyte Count 3.35 X10^3/uL (0.83-4.51); Absolute Neutrophil Count 6.1 X10^3/uL (2.0-7.7); Basophil# 0.08 X10^3/uL; Basophil% 0.8 % (0-1); Eosinophil# 0.17 X10^3/uL; Eosinophils% 1.6 % (0-5); Hematocrit 28.4 % (40-54); Hemoglobin 9.8 g/dL (13.0-16.5); Lymphocyte # 3.35 X10^3/ul (0.83-4.51); Lymphocyte % 32.2 % (19-41); Mean Corp Hgb Conc 34.5 g/dL (32-36); Mean Corpuscular Hgb 30.7 pg (27.0-32.0); Mean Platelet Vol. 9.9 fl (6.2-12.0); Monocyte# 0.68 X10^3/uL; Monocyte% 6.5 % (0-10); NRBC Flagged by Analyzer 0 % (0-5); Neutrophil # 6.07 X10^3/uL (2.7-7.7); Neutrophil % 58.4 % (47-70); Platelet Count 238 K/mm3 (150-450); RBC Distribution Width CV 13.3 % (11.6-14.6); RBC Distribution Width SD 43.7 fl (35.1-43.9); Red Blood Count 3.19 M/mm3 (4.6-6.2); White Blood Count 10.4 K/mm3 (4.4-11.0)
[2024-06-11 05:08] LABS: Anion Gap 5 (5-15); BUN 19 mg/dL (7-18); BUN/Creat Ratio 17.3 RATIO (10-20); Calcium,Total 7.5 mg/dL (8.5-10.1); Chloride 110 mmol/L (98-107); EST Glomerular Filtration Rate 73 mL/min (>60); Est Glom Filt Rate - Afr Amer 88 mL/min (>60); Estimated Creatinine Clearance 83.82 ml/min; Glucose 91 mg/dL (74-106); Potassium 3.3 mmol/L (3.5-5.1); Sodium Level 140 mmol/L (136-145)
[2024-06-11 08:36] VITALS: BP 152/85; PULSE 60; RESP 18; TEMP 36.9; O2SAT 96
[2024-06-11 10:52] VITALS: BP 134/76; PULSE 61; RESP 18; TEMP 36.6; O2SAT 94
[2024-06-11] MEDS: Lisinopril 20 MG Tablet PO (10:55)
[2024-06-11] MEDS: Escitalopram Oxalate 20 MG Tablet PO (10:55)
[2024-06-11] MEDS: amLODIPine 5 MG Tablet PO (10:56)
[2024-06-11 11:19] LABS: Hematocrit 29.1 % (40-54); Hemoglobin 10.2 g/dL (13.0-16.5)
--- NOTE | 2024-06-11 12:49 | DCINST_ITS ---
Discharge Instructions Diet Discharge Diet: No restrictions Activity Discharge Activity: Return to Normal Activity Weight Bearing Status: Full weight bearing Follow Up Care Test Results: Test results from this visit will be discussed in further detail at your follow- up appointment, if applicable. Discharge Plan Admission Admit Date/Time: 06/10/24 18:04 Primary Reason for Your Visit: post polypectomy lower GI bleed Attending Provider: Nj Melvin Primary Care Provider: Valeria Gonzalez Consulting Providers: Dominic Colby Discharge Orders/Prescriptions Prescriptions: Continued escitalopram oxalate [Lexapro] 10 mg tablet 20 mg PO BID lisinopril 20 MG tablet 20 mg PO BID amlodipine 5 mg tablet 5 mg PO DAILY hydrochlorothiazide 25 mg tablet 25 mg PO DAILY Referrals / Follow Up: Valeria Gonzalez DO [Primary Care Provider] - Within 2 Weeks Disposition Disposition (needs filled in before D/C Order can be placed): Home, Self Care
--- NOTE | 2024-06-11 12:51 | PCM.DC.SUM ---
Providers Date of Admission: 06/10/24 Date of Discharge: 06/11/24 Primary Care Physician: Dr. Valeria Gonzalez, DO Consultations 06/10/24 21:19 Consult: Gastroenterology Routine Consulting Provider: [facility] Reason for Consult: GI bleed EMERGENT Consult: No MD Notified: Yes Date Notified: 06/10/24 Time Notified: 18:09 Method of Notification: ED Physician Initiated Reason For Visit: GI BLEED Diagnosis Discharge Diagnosis (1) GI bleed: Status: Acute Code(s): K92.2 - Gastrointestinal hemorrhage, unspecified (2) Anemia: Status: Acute Code(s): D64.9 - Anemia, unspecified Plan 1. Lower GI bleed secondary to post polypectomy removal #2 acute blood loss anemia not requiring blood transfusion secondary to lower GI bleed from post polypectomy removal #3 essential hypertension #4 chronic depression Medications at Discharge Home Medications lisinopril 20 mg tablet 20 mg PO BID 03/16/20 escitalopram oxalate 10 mg tablet (Lexapro) 20 mg PO BID 03/10/22 amlodipine 5 mg tablet 5 mg PO DAILY 06/08/24 hydrochlorothiazide 25 mg tablet 25 mg PO DAILY 06/10/24 Hospital Course Operations None Procedures Colonoscopy Summary of Care Provided Minutes Spent on Discharge: 30 Hospital Course: This 58-year-old white male was seen in the emergency room at [facility] with rectal bleeding, he had had a colonoscopy and an EGD 24 hours previously. Patient did have 2 polyps that were removed during his colonoscopy. Labs obtained in the emergency room showed an elevated white blood cell count at 13.9, hemoglobin was 12.8, BUN was 27 and creatinine is 1.23. Potassium was 3.0. CTA of the abdomen and pelvis was obtained which showed no definite abnormalities, there is noted to be cholelithiasis. [facility], labs were monitored, and the patient underwent a colonoscopy on 06/10/2024 which showed a single solitary 10 mm ulceration in the cecum, oozing was present and a clot was snared and removed and there was a visible vessel noted, the area was injected with epinephrine and hemostatic clips were placed in the area. On 06/11/2024, patient was seen and examined: On examination he appeared in good health and spirits. Vital signs as documented. Skin warm and dry and without overt rashes. Neck without JVD, neck was supple, trachea midline, thyroid was normal. Lungs clear bilaterally, normal air movement was noted. Heart exam notable for regular rhythm, normal sounds and absence of murmurs, rubs or gallops. Abdomen unremarkable and without evidence of organomegaly, masses, or abdominal aortic enlargement. Bowel sounds are present, abdomen is not distended. Extremities nonedematous, no cyanosis was noted, no clubbing was noted. Neuro: Cranial nerves II through XII are grossly intact, no focal motor deficits were noted, sensation to light touch and pinprick intact, motor exam 5/5 throughout. Psych: Patient is alert and oriented x3, he does not appear anxious or depressed, he does not appear agitated. On 06/11/2024, patient was seen and examined and felt to be stable for discharge home, his hemoglobin was stable at the time of discharge. Weight / BMI Weight Weight: 95.4 kg Body Mass Index (BMI) 30.2 ABG / Lab / Microbiology Data 06/11/24 11:06 06/11/24 04:15 Laboratory: Laboratory Results - last 24 hr 06/10/24 14:05: WBC 13.9 H, RBC 4.13 L, Hgb 12.8 L, Hct 36.4 L, MCV 88.1, MCH 31.0, MCHC 35.2, RDW Std Deviation 42.4, RDW Coeff of Maddison 13.1, Plt Count 277, MPV 10.0, Immature Gran % (Auto) 0.600, Neut % (Auto) 74.4 H, Lymph % (Auto) 16.8 L, [place] % (Auto) 7.1, Eos % (Auto) 0.6, Baso % (Auto) 0.5, Absolute Neuts (auto) 10.4 H, Absolute Lymphs (auto) 2.33, Nucleated RBC % 0, Sodium 138, Potassium 3.0 L, Chloride 107, Carbon Dioxide 24.0, Anion Gap 8, BUN 27 H, Creatinine 1.23, Estim Creat Clear Calc 74.96, Est GFR (MDRD) Af Amer 77, Est GFR (MDRD) Non-Af 64, BUN/Creatinine Ratio 22.0 H, Glucose 102, Calcium 8.7, Total Bilirubin 0.30, AST 19, ALT 31, Alkaline Phosphatase 56, Total Protein 6.9, Albumin 3.9, Globulin 3.0, Albumin/Globulin Ratio 1.3 06/10/24 15:00: Urine Color Straw, Urine Clarity Clear, Urine pH 6.0, Ur Specific [place] 1.020, Urine Protein Negative, Urine Glucose (UA) Normal, Urine Ketones Negative, Urine Occult Blood Negative, Urine Nitrite Negative, Urine Bilirubin Negative, Urine Urobilinogen Normal, Ur Leukocyte Esterase Negative, Urine RBC 0 SEEN, Urine WBC 0 SEEN, Ur Squamous Epith Cells 0 SEEN, Urine Bacteria 0 SEEN, Urine Mucus 0 SEEN 06/10/24 15:11: Blood Type A POSITIVE, Antibody Screen NEGATIVE 06/10/24 15:45: PT 14.2, INR 1.1, Lactic Acid 1.7, Magnesium 2.1, Troponin I High Sens 4 06/10/24 17:32: WBC 14.9 H, RBC 3.80 L, Hgb 11.7 L, Hct 33.6 L, MCV 88.4, MCH 30.8, MCHC 34.8, RDW Std Deviation 42.6, RDW Coeff of Maddison 13.2, Plt Count 281, MPV 9.8 06/10/24 18:17: Troponin I High Sens 6 06/10/24 23:10: Hgb 10.4 L, Hct 29.4 L 06/11/24 04:15: WBC 10.4, RBC 3.19 L, Hgb 9.8 L, Hct 28.4 L, MCV 89.0, MCH 30.7, MCHC 34.5, RDW Std Deviation 43.7, RDW Coeff of [place]ison 13.3, Plt Count 238, MPV 9.9, Immature Gran % (Auto) 0.500, Neut % (Auto) 58.4, Lymph % (Auto) 32.2, [place] % (Auto) 6.5, Eos % (Auto) 1.6, Baso % (Auto) 0.8, Absolute Neuts (auto) 6.1, Absolute Lymphs (auto) 3.35, Nucleated RBC % 0, Sodium 140, Potassium 3.3 L, Chloride 110 H, Carbon Dioxide 26.0, Anion Gap 5, BUN 19 H, Creatinine 1.10, Estim Creat Clear Calc 83.82, Est GFR (MDRD) Af Amer 88, Est GFR (MDRD) Non-Af 73, BUN/Creatinine Ratio 17.3, Glucose 91, Calcium 7.5 L 06/11/24 11:06: Hgb 10.2 L, Hct 29.1 L Microbiology: Microbiology 06/10/24 15:00 Stool Stool Occult Blood (SHERLYN) - Final Occult Blood Positive Radiography Diagnostic Testing: Radiology Impression KUB X-Ray 06/10/24 13:53 IMPRESSION: 2 calcifications are seen in the right upper quadrant suggestive of gallstones. Electronically Signed: Deni Rosa MD at 14:37 EDT , Abdomen/Pelvis CTA 06/10/24 15:37 IMPRESSION: No definite acute abnormality. Cholelithiasis. Electronically Signed: Kenny Miller MD at 16:46 EDT , Chest X-Ray 06/10/24 16:05 IMPRESSION: Normal x-ray examination of the chest. Electronically Signed: Kenny Miller MD at 17:14 EDT , D/C Instructions Discharge Diet: No restrictions Weight Bearing Status: Full weight bearing Meaningful Use Info Meaningful Use Meaningful Use Diagnoses (Choose all that apply): None applicable Ischemic Stroke Statin Dosing Therapy Reference: STATIN DOSE THERAPY REFERENCE: * Patients > 75 years receive moderate or high dose statin therapy. * Patients 75 years or YOUNGER should receive HIGH intensity statin dose unless contraindicated. You will be required to document reason for non-treatment if statin daily dose does not meet guidelines. HIGH DOSE STATIN THERAPY DAILY Atorvastatin > than or = to 40 mg Rosuvastatin > than or = to 20 mg Amlodipine + Atorvastatin > than or = to 2.5/40 mg Ezetimibe + Simvastatin 10/80 mg Simvastatin 80mg Discharge Plan Admission Admit Date/Time: 06/10/24 18:04 Primary Reason for Your Visit: post polypectomy lower GI bleed Attending Provider: Nj Melvin Primary Care Provider: Valeria Gonzalez Consulting Providers: Dominic Colby Discharge Orders/Prescriptions Prescriptions: Continued escitalopram oxalate [Lexapro] 10 mg tablet 20 mg PO BID lisinopril 20 MG tablet 20 mg PO BID amlodipine 5 mg tablet 5 mg PO DAILY hydrochlorothiazide 25 mg tablet 25 mg PO DAILY Referrals / Follow Up: Valeria Gonzalez DO [Primary Care Provider] - Within 2 Weeks Disposition Disposition (needs filled in before D/C Order can be placed): Home, Self Care Charges/Coding Visit Charges Inpatient E&M: [id number] Disch Hosp
--- NOTE | 2024-06-11 13:26 | NURSING ---
[address] Melvin if pt has lifting restrictions, since pt lifts 36 pounds all day, lifting it above head, bending, and walks up 15 steps carrying 36lbs. no restrictions given, bleed was due to removal of polyp previously. pt informed.
== END 2024-06-11 13:25 | disposition home or self-care (01) ==
LOC: ED 14:07 → MS3 18:16
PROVIDERS: Internal Medicine Gastroenterology; Nurse Practitioner; Emergency Provider Emergency Medicine; PCP Internal Medicine; Visit Provider Internal Medicine
PROC: 0DJD8ZZ Inspection of Lower Intestinal Tract, Via Natural or Artificial Opening Endoscopic (ICD-10-PCS; CPT 45378; principal; 2024-06-10 19:45)
DX: K91.840 Postprocedural hemorrhage of a digestive system organ or structure following a digestive system procedure (principal); D62 Acute posthemorrhagic anemia; I10 Essential (primary) hypertension; E78.5 Hyperlipidemia, unspecified; K21.00 Gastro-esophageal reflux disease with esophagitis, without bleeding; K80.20 Calculus of gallbladder without cholecystitis without obstruction; Y83.8 Other surgical procedures as the cause of abnormal reaction of the patient, or of later complication, without mention of misadventure at the time of the procedure; F32.A Depression, unspecified; F41.9 Anxiety disorder, unspecified; Z79.899 Other long term (current) drug therapy
CPT/HCPCS: 45381; 36415; 71045; 74018; 74174; 80048; 80053; 81001; 82274; 83605; 83735; 84484; 85014; 85018; 85025; 85027; 85610; 86850; 86900; 86901; 93005; 96361; 96365; 97802; 99221; 99283; J7030; Q9967; A4216; G0378; J2405; J3490